=== PATIENT | male | born 1950 | race African-American/Black ===

== ENCOUNTER 2017-05-25 13:26 | Emergency (ER) | payer MEDICARE, OTHER ==
[2017-05-25 13:31] VITALS: BMI 29.9
--- NOTE | 2017-05-25 13:44 | PDOC ---
History of Present Illness - General Chief Complaint: Injury Stated Complaint: SENT BY PCP FOR HEAD INJURY Time Seen by Provider: 05/25/17 13:43 - History of Present Illness Initial Comments: 05/25/17 13:45 Mr. Choe is a 67 yo male with a significant past medical history of DM, HTN, Hyperlipidemia, CAD, and PTCA who presents to the emergency department for evaluation after continued headache following fall yesterday evening. He reports that he administered his nightly insulin and then became "shakey and wobbly" upon standing. He then fell and hit his head. Following this he developed circumferential headache and "foggy" vision which he says has remained constant since. The patient denies chest pain and shortness of breath. Denies fever, chills, nausea, vomit, diarrhea and constipation. Denies dysuria, frequency, urgency and hematuria. Allergies: Atorvastatin, clopidogrel, plavix and lipitor Past surgical history: Stent placement Social history: Denies PMD - Aleida Pawel Past History - Past Medical History Allergies/Adverse Reactions: Allergies Allergy/AdvReac Type Severity Reaction Status Date / Time atorvastatin calcium AdvReac Muscle Verified 05/25/17 13:31 [From Lipitor] Spasms clopidogrel bisulfate AdvReac Verified 05/25/17 13:31 [From Plavix] Home Medications: Ambulatory Orders Glipizide [Glipizide ER] 10 mg PO DAILY 06/16/16 Insulin Detemir [Levemir Flextouch] 18 unit SQ BID 06/16/16 Losartan/Hydrochlorothiazide [Losartan-Hctz 100-25 mg Tab] 1 each PO DAILY 06/16 Tamsulosin HCl [Flomax] 0.4 mg PO DAILY 06/16/16 Metformin HCl [Glucophage] 0 mg PO DAILY 05/25/17 Metoprolol Tartrate 0 mg PO DAILY 05/25/17 Anemia: Yes Asthma: Yes Cancer: No Cardiac Disorders: Yes ([place], stents) CVA: No COPD: No CHF: No Dementia: No Diabetes: Yes GI Disorders: Yes (GERD) Disorders: No HTN: Yes Hypercholesterolemia: Yes Liver Disease: No Suicide Attempt (Hx): No Seizures: No Thyroid Disease: No - Surgical History Abdominal Surgery: No Appendectomy: No Cardiac Surgery: Yes (2 STENTS) Cholecystectomy: No Lung Surgery: No Neurologic Surgery: No Orthopedic Surgery: No - Immunization History Td Vaccination: Yes Immunization Up to Date: Yes - Psycho/Social/Smoking Cessation Hx Anxiety: No Suicidal Ideation: No Smoking Status: No Smoking History: Never smoked Years of Tobacco Use: 0 Have you smoked in the past 12 months: No Number of Cigarettes Smoked Daily: 0 Cigars Per Day: 0 Information on smoking cessation initiated: No Hx Alcohol Use: No Drug/Substance Use Hx: No Substance Use Type: None Hx Substance Use Treatment: No Review of Systems - Review of Systems Comments:: 05/25/17 13:45 GENERAL/CONSTITUTIONAL: No fever or chills. No weakness. HEAD, EYES, EARS, NOSE AND THROAT: No change in vision. No ear pain or discharge. No sore throat. CARDIOVASCULAR: No chest pain or shortness of breath RESPIRATORY: No cough, wheezing, or hemoptysis. GASTROINTESTINAL: No nausea, vomiting, diarrhea or constipation. GENITOURINARY: No dysuria, frequency, or change in urination. MUSCULOSKELETAL: No joint or muscle swelling or pain. No neck or back pain. SKIN: No rash NEUROLOGIC: +current headache circumferentially around head. No vertigo, loss of consciousness, or change in strength/sensation. ENDOCRINE: No increased thirst. No abnormal weight change HEMATOLOGIC/LYMPHATIC: No anemia, easy bleeding, or history of blood clots. ALLERGIC/IMMUNOLOGIC: No hives or skin allergy. *Physical Exam - Vital Signs Last Vital Signs Temp Pulse Resp BP Pulse Ox 98.4 F 77 18 139/74 100 05/25/17 13:27 05/25/17 13:27 05/25/17 13:27 05/25/17 13:27 05/25/17 13:27 - Physical Exam Comments: 05/25/17 13:45 GENERAL: Awake, alert, and fully oriented, in no acute distress HEAD: No signs of trauma, normocephalic, atraumatic EYES: PERRLA, EOMI, sclera anicteric, conjunctiva clear ENT: Auricles normal inspection, hearing grossly normal, nares patent, oropharynx clear without exudates. Moist mucosa NECK: Normal ROM, supple, no lymphadenopathy, JVD, or masses LUNGS: No distress, speaks full sentences, clear to auscultation bilaterally HEART: Regular rate and rhythm, normal S1 and S2, no murmurs, rubs or gallops, peripheral pulses normal and equal bilaterally. ABDOMEN: Soft, nontender, normoactive bowel sounds. No guarding, no rebound. No masses EXTREMITIES: Normal inspection, Normal range of motion, no edema. No clubbing or cyanosis. NEUROLOGICAL: Cranial nerves II through XII grossly intact. Normal speech, normal gait, no focal sensorimotor deficits SKIN: Warm, Dry, normal turgor, no rashes or lesions noted. ED Treatment Course - LABORATORY CBC & Chemistry Diagram: 05/25/17 14:30 05/25/17 15:52 *DC/Admit/Observation/Transfer Diagnosis at time of Disposition: Fall Qualifiers: Encounter type: initial encounter Qualified Code(s): W19.XXXA - Unspecified fall, initial encounter - Discharge Dispostion Disposition: HOME - Referrals Referrals: Aleida Soni MD [Primary Care Provider] - - Patient Instructions Printed Discharge Instructions: DI for Closed Head Injury, DI for Hypoglycemia Additional Instructions: Please follow-up as discussed with your provider tomorrow.
[2017-05-25 14:54] LABS: BASOPHIL 0.7 % (0-2.0); EOSINOPHIL 0.9 % (0-4.5); MCH 30.1 pg (25.7-33.7); MCHC 33.3 g/dl (32.0-35.9); MEAN CELL VOLUME 90.4 fl (80-96); MEAN PLT VOLUME 9.4 fl (7.5-11.1); NEUTROPHILS 58.1 % (42.8-82.8); PLATELET COUNT 328 K/MM3 (134-434); RDW 13.7 % (11.9-15.9); WHITE BLOOD COUNT 7.1 K/mm3 (4.0-10.0)
--- NOTE | 2017-05-25 16:29 | PDOC ---
Attending Attestation - Resident Resident Name: Wiley Fish - ED Attending Attestation I have performed the following: I have examined & evaluated the patient, The case was reviewed & discussed with the resident, I agree w/resident's findings & plan, Exceptions are as noted - HPI HPI: 05/25/17 16:26 67 yo m with h/'o DM here /sp fall yesterday. pt state he fainted after taking his insulin, fell and hit his head. brief loc. states ate too long prior to giving insulin. has happened to him before. no cp no palpitations. no mod factors. - Physicial Exam PE: 05/25/17 16:28 awake alert lungs clear heart rrr nomrg. abd soft nt nd. ext wwp . atraumatic. no mildline spinal tenderness. - Medical Decision Making 05/25/17 16:29 67 s/p head trauma. synocpe likley related to hypoglycemia. plan labs ekg ct head. d/w dr zhang pt pcp.
[2017-05-25 16:52] LABS: ANION GAP 7 (8-16); CALCIUM 10.2 mg/dL (8.5-10.1); CO2 32 mmol/L (21-32); GLUCOSE,RANDOM 73 mg/dL (74-106)
[2017-05-25 16:56] LABS: ALK PHOS 45 U/L (45-117); BILIRUBIN,TOTAL 0.3 mg/dL (0.2-1.0); SGOT/AST 19 U/L (15-37); SGPT/ALT 32 U/L (12-78); TOT PROT 7.3 g/dl (6.4-8.2)
[2017-05-25] MEDS ORDERED: ACETAMINOPHEN 325 MG TABLET (FP) PO ONE (16:59)
[2017-05-25] MEDS ORDERED: ACETAMINOPHEN 325 MG TABLET (FP) ONE (17:07)
[2017-05-25 18:04] LABS: CPK 558 IU/L (39-308); TROPONIN I < 0.02 ng/ml (0.00-0.05)
--- NOTE | 2017-05-25 19:12 | PDOC ---
*Physical Exam - Vital Signs Last Vital Signs Temp Pulse Resp BP Pulse Ox 97.8 F 68 18 119/60 100 05/25/17 16:32 05/25/17 16:32 05/25/17 16:32 05/25/17 16:32 05/25/17 16:32 - Physical Exam Comments: 05/25/17 19:11 General Appearance: Nourished. No Apparent Distress HEENT: EOMI, MARILYN Respiratory/Chest: Lungs Clear, Normal Breath Sounds. No Crackles, Rales, Rhonchi, Wheezing Cardiovascular: Regular Rhythm, Regular Rate. No Murmur, Gallop/S3, Gallop/S4 Gastrointestinal/Abdominal: Normal Bowel Sounds, Soft. No Guarding, Rebound, Tenderness Musculoskeletal: Normal Inspection Extremity: Normal Capillary Refill Integumentary: Normal Color, Dry, Warm Neurologic: mechanical unit repairer II-XII NML intact, Fully Oriented, Alert, Normal Mood/Affect, Normal Response, Motor Strength /5 ED Treatment Course - LABORATORY CBC & Chemistry Diagram: 05/25/17 14:30 05/25/17 15:52 - ADDITIONAL ORDERS Additional order review: Laboratory Results 05/25/17 05/25/17 05/25/17 16:20 15:52 14:30 Sodium 139 Cancelled Potassium 4.6 Cancelled Chloride 100 Cancelled Carbon Dioxide 32 Cancelled Anion Gap 7 L Cancelled BUN 29 H Cancelled Creatinine 2.0 H Cancelled Creat Clearance w eGFR 33.49 Cancelled Random Glucose 73 L D Cancelled Calcium 10.2 H Cancelled Total Bilirubin 0.3 D Cancelled AST 19 D Cancelled ALT 32 D Cancelled Alkaline Phosphatase 45 Cancelled Creatine Kinase 558 H Cancelled Troponin I < 0.02 Cancelled Total Protein 7.3 Cancelled Albumin 4.0 Cancelled 05/25/17 14:30 RBC 4.02 MCV 90.4 MCHC 33.3 RDW 13.7 MPV 9.4 D Neutrophils % 58.1 Lymphocytes % 32.6 Monocytes % 7.7 Eosinophils % 0.9 Basophils % 0.7 - Medications Given in the ED: ED Medications Discontinued Medications Generic Name Dose Route Start Last Admin Trade Name Freq PRN Reason Stop Dose Admin Acetaminophen 650 mg 05/25/17 16:59 05/25/17 17:07 Tylenol - PO 05/25/17 17:00 650 mg ONCE ONE Administration Progress Note - Progress Note Progress Note: Received sign out from Dr. Mejias. Patient is a 67 year old male with a history of DM, HTN, HLD who presents following a fall from a hypoglycemic episode yesterday. Work up has been negative thus far pending CK. If CK is negative, that patient can be discharged home with follow up with his PCP Dr. Soni. Medical Decision Making - Medical Decision Making 05/25/17 19:17 CK index is 0.6. We feel comfortable discharging the patient at this time. The patient is agreeable with the plan. *DC/Admit/Observation/Transfer Diagnosis at time of Disposition: Fall Qualifiers: Encounter type: initial encounter Qualified Code(s): W19.XXXA - Unspecified fall, initial encounter - Discharge Dispostion Disposition: HOME - Referrals Referrals: Aleida Soni MD [Primary Care Provider] - - Patient Instructions Printed Discharge Instructions: DI for Hypoglycemia, DI for Closed Head Injury Additional Instructions: Please follow-up as discussed with your provider tomorrow. - Post Discharge Activity
[2017-05-25 19:25] VITALS: BP 128/73; PULSE 72; TEMP 98.4
--- NOTE | 2017-05-26 12:26 | EKG ---
Test Reason : Blood Pressure : / mmHG Vent. Rate : 067 BPM Atrial Rate : 067 BPM P-R Int : 186 ms QRS Dur : 082 ms QT Int : 388 ms P-R-T Axes : 070 069 059 degrees QTc Int : 409 ms NORMAL SINUS RHYTHM NORMAL ECG WHEN COMPARED WITH ECG OF 16-JUN-2016 13:15, NO SIGNIFICANT CHANGE WAS FOUND Confirmed by JOYCE MCCORMICK MD ([id number]) on 05/26/2017 12:26:04 PM Referred By: Confirmed By:JOYCE MCCORMICK MD
== END 2017-05-25 19:25 | disposition home or self-care (01) ==
LOC: JER 13:26
DX: S09.8XXA Other specified injuries of head, initial encounter (principal); E11.649 Type 2 diabetes mellitus with hypoglycemia without coma; Z79.4 Long term (current) use of insulin; Z79.84 Long term (current) use of oral hypoglycemic drugs; I25.2 Old myocardial infarction; I25.10 Atherosclerotic heart disease of native coronary artery without angina pectoris; I10 Essential (primary) hypertension; Z95.5 Presence of coronary angioplasty implant and graft; E78.00 Pure hypercholesterolemia, unspecified; J45.909 Unspecified asthma, uncomplicated; D64.9 Anemia, unspecified; W01.198A Fall on same level from slipping, tripping and stumbling with subsequent striking against other object, initial encounter; Y93.89 Activity, other specified; Y92.018 Other place in single-family (private) house as the place of occurrence of the external cause
CPT/HCPCS: 36415; 70450-TC; 80053; 82553; 84484; 85025; 93005; 93010; 99283-25

== ENCOUNTER 2018-01-26 12:52 | Emergency (ER) | payer MEDICARE, OTHER ==
[2018-01-26 12:58] VITALS: BMI 29.4
--- NOTE | 2018-01-26 13:25 | PDOC ---
History of Present Illness - General History Source: Patient Exam Limitations: No Limitations - History of Present Illness Initial Comments: 01/26/18 13:54 The patient is a 67 year old male, with a significant PMH of seasonal allergies , DM, HTN, Hyperlipidemia, asthma, CAD and PTCA who presents to the emergency department with bilateral eye swelling since 9 am. The patient states [place] the city [place] when he noticed the bilateral eye swelling. The patient states he ate peanuts approx. 30 minutes prior but reports he often eats peanuts and has never had an allergic reaction from peanuts before. The patient states he does have very bad seasonal allergies. The patient states that earlier he felt some generalized eye itchiness and was rubbing his eyes, especially his R eye pretty agressively. The patient states he tried using eye drops from [facility] (patient is unsure of the name of the drops) with minimal relief. He denies any skin rash, difficulty breathing, wheezing, palpitations, abdominal pain, nausea or vomiting. The patient denies chest pain, shortness of breath, headache and dizziness. Denies fever, chills, nausea, vomit, diarrhea and constipation. Denies dysuria, frequency, urgency and hematuria. Allergies: seasonal allergies, atorvastatin calcium, clopidogrel bisulfate Past surgical history: Stent placement Social history: No reported PCP: Dr. Aleida Soni <Jakob Junior - Last Filed: 01/26/18 13:54> <Jr Rubalcava - Last Filed: 01/26/18 15:01> - General Chief Complaint: Allergic Reaction Stated Complaint: ALLERGIC REASCTION Time Seen by Provider: 01/26/18 13:21 Past History <Jakob Junior - Last Filed: 01/26/18 13:54> - Past Medical History Anemia: Yes Asthma: Yes Cancer: No Cardiac Disorders: Yes ([place], stents) CVA: No COPD: No CHF: No DVT: No Dementia: No Diabetes: Yes GI Disorders: Yes (GERD) Disorders: No HTN: Yes Hypercholesterolemia: Yes Liver Disease: No Seizures: No Thyroid Disease: No - Surgical History Abdominal Surgery: No Appendectomy: No Cardiac Surgery: Yes (2 STENTS) Cholecystectomy: No Lung Surgery: No Neurologic Surgery: No Orthopedic Surgery: No - Immunization History Td Vaccination: Yes Immunization Up to Date: Yes - Suicide/Smoking/Psychosocial Hx Smoking Status: No Smoking History: Never smoked Years of Tobacco Use: 0 Have you smoked in the past 12 months: No Number of Cigarettes Smoked Daily: 0 Cigars Per Day: 0 Information on smoking cessation initiated: No Hx Alcohol Use: No Drug/Substance Use Hx: No Substance Use Type: None Hx Substance Use Treatment: No <Jr Rubalcava - Last Filed: 01/26/18 15:01> - Past Medical History Allergies/Adverse Reactions: Allergies Allergy/AdvReac Type Severity Reaction Status Date / Time atorvastatin calcium AdvReac Muscle Verified 01/26/18 12:54 [From Lipitor] Spasms clopidogrel bisulfate AdvReac Verified 01/26/18 12:54 [From Plavix] Home Medications: Ambulatory Orders Glipizide [Glipizide ER] 10 mg PO DAILY 06/16/16 Insulin Detemir [Levemir Flextouch] 18 unit SQ BID 06/16/16 Losartan/Hydrochlorothiazide [Losartan-Hctz 100-25 mg Tab] 1 each PO DAILY 06/16 Tamsulosin HCl [Flomax] 0.4 mg PO DAILY 06/16/16 Metformin HCl [Glucophage] 0 mg PO DAILY 05/25/17 Metoprolol Tartrate 0 mg PO DAILY 05/25/17 Diphenhydramine HCl [Benadryl Capsules -] 25 mg PO TID #14 capsule 01/26/18 predniSONE [Deltasone -] 40 mg PO DAILY #6 tablet 01/26/18 Review of Systems - Review of Systems Comments:: 01/26/18 13:55 CONSTITUTIONAL: No reported: Fever, Chills, Diaphoresis, Generalized Weakness, Malaise, Loss of Appetite HEENT: Reported: (+) Bilateral eye swelling. No reported: Rhinorrhea, Nasal Congestion, Throat Pain, Throat Swelling, Difficulty Swallowing, Mouth Swelling, Ear Pain, Eye Pain CARDIOVASCULAR: No reported: Chest Pain, Syncope, Palpitations, Irregular Heart Rate, Lightheadedness, Peripheral Edema RESPIRATORY: No reported: Cough, Shortness of Breath, SOB with Exertion, Orthopnea, Wheezing , Stridor, Hemoptysis GASTROINTESTINAL: No reported: Abdominal pain, Abdominal Distension, Nausea, Vomiting, Diarrhea, Constipation, Melena, Hematochezia GENITOURINARY: No reported: Dysuria, Frequency, Urgency, Hesitancy, Flank Pain, Genital Pain MUSCULOSKELETAL: No reported: Myalgia, Arthralgia, Joint Swelling, Back pain, Neck Pain SKIN: No reported: Rash, Itching, Pallor HEMEATOLOGIC/IMMUNOLOGIC: No reported: Easy Bleeding, Easy Bruising, Lymphadenopathy, Frequent infections ENDOCRINE: No reported: Unexplained Weight Gain, Unexplained Weight Loss, Heat Intolerance , Cold Intolerance NEUROLOGIC: No reported: Headache, Focal Weakness, Paresthesias, Vertigo, Lightheadedness, Unsteady Gait, Seizure, Mental Status Changes, Incontinence PSYCHIATRIC: No reported: Anxiety, Depression <Jakob Junior - Last Filed: 01/26/18 13:54> *Physical Exam - Vital Signs Last Vital Signs Temp Pulse Resp BP Pulse Ox 99.0 F 77 16 130/88 100 01/26/18 12:54 01/26/18 12:54 01/26/18 12:54 01/26/18 12:54 01/26/18 12:54 - Physical Exam Comments: 01/26/18 13:55 GENERAL: The patient is awake, alert, and fully oriented, Nontoxic - in no acute distress. HEAD: Normocephalic, atraumatic. EYES: b/l periorbital edema (R>L), +conjunctival edema/chemosis on R eye, EOMI ENT: Normal voice, Moist mucous membranes, posterior pharynx clear and patent, symmetric LUNGS: Breath sounds equal, clear to auscultation bilaterally. No wheezes, no rhonchi, no rales. HEART: Regular rate and rhythm, normal S1 and S2 without murmur, rub or gallop. ABDOMEN: Soft, nontender,. No CVA tenderness NEUROLOGICAL: No facial assymetry, Normal speech, SKIN: Warm, Dry, normal turgor, <Jakob Junior - Last Filed: 01/26/18 13:54> - Vital Signs Last Vital Signs Temp Pulse Resp BP Pulse Ox 99.0 F 77 16 130/88 100 01/26/18 12:54 01/26/18 12:54 01/26/18 12:54 01/26/18 12:54 01/26/18 12:54 <Jr Rubalcava - Last Filed: 01/26/18 15:01> Medical Decision Making - Medical Decision Making 01/26/18 13:23 67y M hx of asthma, dm, allergies, cad s/p stents presents with eye swelling that started paprox 11am, pt notes it started approx 30 minutes after eating peanuts, but notes never had any problems with peanuts. Was outside earlier in the day, ddx - allergic reaction/chemosis no signs of airway compromise or anaphylaxis will dc with pmd fu and supportive care with prednisone/benadryl return precautions were discusse I discussed the physical exam findings, ancillary test results and final diagnoses with the patient. I answered all of the patient's questions. The patient was satisfied with the care received and felt comfortable with the discharge plan and treatment plan. The patient will call their primary care physician within 24 hours to arrange follow-up and will return to the Emergency Department with any new, persistent or worsening symptoms. <Jr Rubalcava - Last Filed: 01/26/18 15:01> *DC/Admit/Observation/Transfer - Attestations Scribe Attestion: 01/26/18 13:55 Documentation prepared by Jakob Junior, acting as medical records specialist for Jr Rubalcava MD. <Jakob Junior - Last Filed: 01/26/18 13:54> - Discharge Dispostion Decision to Admit order: No <Jr Rubalcava - Last Filed: 01/26/18 15:01> Diagnosis at time of Disposition: Chemosis of right conjunctiva, Periorbital edema of right eye Allergic reaction Qualifiers: Encounter type: initial encounter Qualified Code(s): T78.40XA - Allergy, unspecified, initial encounter - Discharge Dispostion Disposition: HOME Condition at time of disposition: Improved - Referrals Referrals: Aleida Soni MD [Primary Care Provider] - - Patient Instructions Printed Discharge Instructions: DI for Eye Allergic Reaction Additional Instructions: Return to the emergency department immediately with ANY new, persistent or worsening symptoms including any blurry vision, swelling of your tongue, your throat, if he had any problems swallowing, changes in your voice, shortness of breath, or any other concerns. I suspect that you're symptoms were due to an ALLERGIC reaction likely due to pollen, however do not eat peanuts and please see your ALLERGY doctor. Take the medication as prescribed as needed. You MUST call and follow up with your doctor in 2 or 3 days for further evaluation of your symptoms. Results were discussed with you. Please make sure your doctor reviews the results of your emergency evaluation. Print Language: MAORI - Post Discharge Activity
[2018-01-26] MEDS ORDERED: predniSONE 20 MG TABLET (UD) PO ONE (13:38)
[2018-01-26] MEDS ORDERED: diphenhydrAMINE HCL 25 MG CAPSULE (FP) PO ONE ×2 (13:38→14:08)
[2018-01-26] MEDS ORDERED: predniSONE 20 MG TABLET (UD) ONE (14:08)
[2018-01-26 15:33] VITALS: BP 145/76; PULSE 69; TEMP 98.7
== END 2018-01-26 15:23 | disposition home or self-care (01) ==
LOC: JER 12:52
DX: T78.40XA Allergy, unspecified, initial encounter (principal); H11.421 Conjunctival edema, right eye
CPT/HCPCS: 99282-25

== ENCOUNTER 2018-10-20 00:14 | Inpatient (IN) | payer MEDICARE, OTHER ==
--- NOTE | 2018-10-20 00:44 | PDOC ---
Attending Attestation - Resident Resident Name: Nav Daniels - ED Attending Attestation I have performed the following: I have examined & evaluated the patient, The case was reviewed & discussed with the resident, I agree w/resident's findings & plan, Exceptions are as noted - HPI HPI: 10/20/18 07:21 68M pmh DM, HTN, HLD, CAD here with chest pain radiating to left shoulder a/w sob, diaphoresis since 11pm. Pt took 162mg asa at home, given an additional 162mg asa by EMS. Px improved with SL NTG. - Physicial Exam PE: 10/20/18 07:22 Agree with exam as documented by resident - Medical Decision Making 10/20/18 07:23 Typical CP in high risk patient f/u labs, ekg, cxr ekg with lateral STD, 1st trop 0.42 start AC, serial trop, ekg admit
[2018-10-20 01:07] LABS: EOS % 2.2 % (0-4.5); HEMATOCRIT 35.2 % (35.4-49); HEMOGLOBIN 12.7 GM/dL (11.7-16.9); LYMPH % 29.3 % (8-40); MCH 32.5 pg (25.7-33.7); MEAN CELL VOLUME 90.2 fl (80-96); MEAN PLT VOLUME 8.4 fl (7.5-11.1); MONO % 8.6 % (3.8-10.2); NEUT % 58.9 % (42.8-82.8); PLATELET COUNT 254 K/MM3 (134-434); RBC 3.91 M/mm3 (4.00-5.60); RDW 12.9 % (11.9-15.9); WHITE BLOOD COUNT 6.5 K/mm3 (4.0-10.0)
[2018-10-20 01:10] VITALS: BMI 30.1
[2018-10-20 01:49] LABS: ALBUMIN 3.2 g/dl (3.4-5.0); ALK PHOS 52 U/L (45-117); ANION GAP 8 MMOL/L (8-16); BILIRUBIN,TOTAL 0.3 mg/dL (0.2-1); BLOOD UREA NITROGEN 30 mg/dL (7-18); CALCIUM 8.7 mg/dL (8.5-10.1); CHLORIDE 98 mmol/L (98-107); CO2 28 mmol/L (21-32); CREATININE 2.4 mg/dL (0.55-1.3); GLUCOSE,RANDOM 223 mg/dL (74-106); MAGNESIUM 1.6 mg/dL (1.8-2.4); POTASSIUM 3.9 mmol/L (3.5-5.1); SGOT/AST 24 U/L (15-37); SGPT/ALT 25 U/L (13-61); SODIUM 134 mmol/L (136-145); TOT PROT 6.8 g/dl (6.4-8.2)
[2018-10-20] MEDS ORDERED: HEPARIN NA (PORCINE) 5,000 UNITS/ML 1ML VIAL IVPUSH PRN ×2 (01:57)
--- NOTE | 2018-10-20 01:57 | PDOC ---
History of Present Illness - General Chief Complaint: Chest Pain Stated Complaint: CHEST PAIN Time Seen by Provider: 10/20/18 00:24 History Source: Patient Exam Limitations: No Limitations - History of Present Illness Initial Comments: 10/20/18 01:56 Patient is a 68M with history of CAD, HTN, DM, HLD here today complaining of chest pain. He states that he woke up at 11pm today with shortness of breath, diaphoresis, and chest pain radiating to his left shoulder. Patient states that he took 162 of aspirin. EMS gave him additional 162 of aspirin. The pain improved with nitro. Patient denies fevers, chills, cough, shortness of breath, nausea, vomiting. Denies leg swelling, blood clots, recent travel. Past History - Past Medical History Allergies/Adverse Reactions: Allergies Allergy/AdvReac Type Severity Reaction Status Date / Time atorvastatin calcium AdvReac Muscle Verified 10/20/18 00:37 [From Lipitor] Spasms clopidogrel bisulfate AdvReac Verified 10/20/18 00:37 [From Plavix] Home Medications: Ambulatory Orders Glipizide [Glipizide ER] 10 mg PO DAILY 06/16/16 Losartan/Hydrochlorothiazide [Losartan-Hctz 100-25 mg Tab] 1 each PO DAILY 06/16 Metoprolol Tartrate 50 mg PO DAILY 05/25/17 Insulin Aspart [Novolog] 8 unit SQ TID 10/20/18 Insulin Glargine,Hum.rec.anlog [Lantus] 28 unit SQ BID 10/20/18 Anemia: Yes Asthma: Yes Cancer: No Cardiac Disorders: Yes ([place], stents) CVA: No COPD: No CHF: No DVT: No Dementia: No Diabetes: Yes GI Disorders: Yes (GERD) Disorders: No HTN: Yes Hypercholesterolemia: Yes Liver Disease: No Seizures: No Thyroid Disease: No - Surgical History Abdominal Surgery: No Appendectomy: No Cardiac Surgery: Yes (2 STENTS) Cholecystectomy: No Lung Surgery: No Neurologic Surgery: No Orthopedic Surgery: No - Immunization History Td Vaccination: Yes Immunization Up to Date: Yes - Suicide/Smoking/Psychosocial Hx Smoking Status: No Smoking History: Never smoked Years of Tobacco Use: 0 Have you smoked in the past 12 months: No Number of Cigarettes Smoked Daily: 0 Cigars Per Day: 0 Information on smoking cessation initiated: No Hx Alcohol Use: No Drug/Substance Use Hx: No Substance Use Type: None Hx Substance Use Treatment: No Review of Systems - Review of Systems Able to Perform ROS?: Yes Comments:: 10/20/18 02:18 GENERAL/CONSTITUTIONAL: No fever or chills. No weakness. HEAD, EYES, EARS, NOSE AND THROAT: No change in vision. No sore throat. CARDIOVASCULAR: +chest pain +shortness of breath RESPIRATORY: No cough, wheezing, or hemoptysis. GASTROINTESTINAL: No nausea, vomiting, diarrhea or constipation. GENITOURINARY: No dysuria, frequency, or change in urination. MUSCULOSKELETAL: No joint or muscle swelling or pain. No neck or back pain. SKIN: No rash NEUROLOGIC: No headache, vertigo, loss of consciousness, or change in strength/ sensation. ENDOCRINE: No increased thirst. No abnormal weight change HEMATOLOGIC/LYMPHATIC: No anemia, easy bleeding, or history of blood clots. ALLERGIC/IMMUNOLOGIC: No hives or skin allergy. *Physical Exam - Vital Signs Last Vital Signs Temp Pulse Resp BP Pulse Ox 98.5 F 85 18 126/73 99 10/20/18 00:15 10/20/18 00:15 10/20/18 00:15 10/20/18 00:15 10/20/18 00:15 - Physical Exam Comments: 10/20/18 02:20 GENERAL: Awake, alert, and fully oriented, in no acute distress HEAD: No signs of trauma, normocephalic, atraumatic EYES: PERRLA, EOMI, sclera anicteric, conjunctiva clear ENT: Auricles normal inspection, hearing grossly normal, nares patent, oropharynx clear without exudates. Moist mucosa NECK: Normal ROM, supple, no lymphadenopathy, JVD, or masses LUNGS: No distress, speaks full sentences, clear to auscultation bilaterally HEART: Regular rate and rhythm, normal S1 and S2, no murmurs, rubs or gallops, peripheral pulses normal and equal bilaterally. ABDOMEN: Soft, nontender, normoactive bowel sounds. No guarding, no rebound. No masses EXTREMITIES: Normal inspection, Normal range of motion, no edema. No clubbing or cyanosis. NEUROLOGICAL: Cranial nerves II through XII grossly intact. Normal speech, no focal sensorimotor deficits SKIN: Warm, Dry, normal turgor, no rashes or lesions noted. Moderate Sedation - Procedure Monitoring Vital Signs: Procedure Monitoring Vital Signs Temperature 98.5 F 10/20/18 00:15 Pulse Rate 85 10/20/18 00:15 Respiratory Rate 18 10/20/18 00:15 Blood Pressure 126/73 10/20/18 00:15 O2 Sat by Pulse Oximetry (%) 99 10/20/18 00:15 ED Treatment Course - LABORATORY CBC & Chemistry Diagram: 10/20/18 00:58 10/20/18 00:58 - ADDITIONAL ORDERS Additional order review: Laboratory Results 10/20/18 00:58 Sodium 134 L Potassium 3.9 Chloride 98 Carbon Dioxide 28 Anion Gap 8 BUN 30 H Creatinine 2.4 H Creat Clearance w eGFR 27.06 Random Glucose 223 H Calcium 8.7 Magnesium 1.6 L Total Bilirubin 0.3 AST 24 ALT 25 Alkaline Phosphatase 52 Creatine Kinase 226 Troponin I 0.42 H Total Protein 6.8 Albumin 3.2 L 10/20/18 00:58 RBC 3.91 L MCV 90.2 MCHC 36.0 H RDW 12.9 MPV 8.4 Neutrophils % 58.9 Lymphocytes % 29.3 Monocytes % 8.6 Eosinophils % 2.2 D Basophils % 1.0 - RADIOLOGY Radiology Studies Ordered: Category Date Time Status CHEST X-RAY PORTABLE* [RAD] Stat Radiology 10/20/18 00:39 Taken Medical Decision Making - Medical Decision Making 10/20/18 02:20 Patient is 68M here today with chest pain. Vitals normal and stable. EKG shows normal sinus rhythm with rate of 83. ST depressions in V4-V6. Normal axis. Normal intervals. No st elevations. Got aspirin before arrival. Trop positive to 0.41. Other labs wnl. Page out to cards. Given morphine for pain, pain has improved but still present. Heparin bolus and drip started. PCP: Nae, Cards: Carly 10/20/18 04:55 D/W Dr Mitchell, accepted to tele. *DC/Admit/Observation/Transfer Diagnosis at time of Disposition: NSTEMI (non-ST elevated myocardial infarction) - Discharge Dispostion Condition at time of disposition: Stable Decision to Admit order: Yes - Referrals - Patient Instructions - Post Discharge Activity
[2018-10-20] MEDS ORDERED: HEPARIN NA (PORCINE) 5,000 UNITS/ML 1ML VIAL IVPUSH ONE (01:58)
[2018-10-20] MEDS ORDERED: HEPARIN - 25,000 UNIT in SODIUM CHLORIDE 495 ML IV SCH (02:00)
[2018-10-20] MEDS ORDERED: HEPARIN INFUSION - 25,000 UNITS/500 ML INFUS.BAG IVPB ONE (02:03)
[2018-10-20] MEDS ORDERED: HEPARIN NA (PORCINE) 5,000 UNITS/ML 1ML VIAL ONE (02:03)
[2018-10-20] MEDS ORDERED: morphine CARPU-JECT 4 MG/1 ML DISP.SYRIN IVPUSH ONE (02:17)
[2018-10-20 02:25] LABS: INR 0.86 (0.83-1.09); PROTHROMBIN TIME (PATIENT) 10.1 SEC (9.7-13.0)
[2018-10-20] MEDS ORDERED: morphine SULFATE 4 MG/ML VIAL ONE (02:29)
--- NOTE | 2018-10-20 04:22 | HP ---
CHIEF COMPLAINT: chest pain x 11pm PCP: Dr. Soni HISTORY OF PRESENT ILLNESS: 68 y/o M with PMH CAD s/p 2 stents (6 yrs ago; [facility], Dr. Ochoa), HTN, DM2 , HLD, asthma, who presents to the ED c/o chest pain that started at 11pm this evening. As per pt, at 11pm, he was fast asleep when he started to develop diaphoresis. At the same time, he developed mid-sternal chest pain that was 10/ 10 and sharp. Had thought that it was asthma, so took his inhaler without relief. When his chest pain continued to worsen over the next 45 minutes, and began to radiate into his LUE, he told himself "I am having a heart attack." Thus pt took 2 baby asa (162mg total) and called himself an ambulance to come to the ER. States that he feels better than when he arrived. Only endorses dry cough that he has had over the past 3-4 weeks. Without current chest pain or pressure, M[place], fever, chills, SOB, or changes in urinary or bowel function. He follows with Dr. Carroll. States that he had a stress test done about a year ago, however does not know the result. ECHO from 2013 shows EF 44%, with nl LV systolic fnc and trace MR, TR. No significant family hx of [place], HTN, but his mother does have DM. 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 moved here from [place] 40-50 yrs ago Smoking: denies Alcohol: denies Drugs: denies Family History: mother- DM Allergies atorvastatin calcium [From Lipitor] Adverse Reaction (Verified 10/20/18 00:37) Muscle Spasms clopidogrel bisulfate [From Plavix] Adverse Reaction (Verified 10/20/18 00:37) HOME MEDICATIONS: Home Medications Medication Instructions Recorded Glipizide [Glipizide ER] 10 mg PO DAILY 06/16/16 Losartan/Hydrochlorothiazide 1 each PO DAILY 06/16/16 [Losartan-Hctz 100-25 mg Tab] Metoprolol Tartrate 50 mg PO DAILY 05/25/17 Insulin Aspart [Novolog] 8 unit SQ TID 10/20/18 Insulin Glargine,Hum.rec.anlog 28 unit SQ BID 10/20/18 [Lantus] meds need to be confirmed with patient and pharmacy REVIEW OF SYSTEMS CONSTITUTIONAL: +diaphoresis Absent: fever, chills, diaphoresis, generalized weakness, malaise, loss of appetite, weight change HEENT: Absent: rhinorrhea, nasal congestion, throat pain, throat swelling, difficulty swallowing, mouth swelling, ear pain, eye pain, visual changes CARDIOVASCULAR: +chest pain Absent: chest pain, syncope, palpitations, irregular heart rate, lightheadedness , peripheral edema RESPIRATORY: Absent: cough, shortness of breath, dyspnea with exertion, orthopnea, wheezing, stridor, hemoptysis GASTROINTESTINAL: Absent: abdominal pain, abdominal distension, nausea, vomiting, diarrhea, constipation, melena, hematochezia GENITOURINARY: Absent: dysuria, frequency, urgency, hesitancy, hematuria, flank pain, genital pain MUSCULOSKELETAL: Absent: myalgia, arthralgia, joint swelling, back pain, neck pain SKIN: Absent: rash, itching, pallor HEMATOLOGIC/IMMUNOLOGIC: Absent: easy bleeding, easy bruising, lymphadenopathy, frequent infections ENDOCRINE: Absent: unexplained weight gain, unexplained weight loss, heat intolerance, cold intolerance NEUROLOGIC: Absent: headache, focal weakness or paresthesias, dizziness, unsteady gait, seizure, mental status changes, bladder or bowel incontinence PSYCHIATRIC: Absent: anxiety, depression, suicidal or homicidal ideation, hallucinations. PHYSICAL EXAMINATION Vital Signs - 24 hr 10/20/18 00:15 Temperature 98.5 F Pulse Rate 85 Respiratory 18 Rate Blood Pressure 126/73 O2 Sat by Pulse 99 Oximetry (%) GENERAL: Very pleasant. Awake, alert, and fully oriented, in no acute distress. Resting in bed on 2L NC HEAD: Normal with no signs of trauma. EYES: Pupils equal, round and reactive to light, extraocular movements intact, sclera anicteric, conjunctiva clear. EARS, NOSE, THROAT: Ears normal, nares patent, oropharynx clear without exudates. Moist mucous membranes. NECK: Normal range of motion, supple LUNGS: Breath sounds equal, clear to auscultation bilaterally. No wheezes, and no crackles. No accessory muscle use. HEART: Regular rate and rhythm, normal S1 and S2 without murmur, rub or gallop. ABDOMEN: Soft, obese, nontender, mildly distended, normoactive bowel sounds LOWER EXTREMITIES: 2+ pt pulses, warm, well-perfused. No calf tenderness. No peripheral edema. NEUROLOGICAL: Cranial nerves II-XII intact. Normal speech. Normal gait. PSYCHIATRIC: Cooperative. Good eye contact. SKIN: Warm, dry, normal turgor Laboratory Results - last 24 hr 10/20/18 10/20/18 10/20/18 00:58 00:58 00:58 WBC 6.5 RBC 3.91 L Hgb 12.7 Hct 35.2 L MCV 90.2 MCH 32.5 MCHC 36.0 H RDW 12.9 Plt Count 254 MPV 8.4 Absolute Neuts (auto) 3.8 Neutrophils % 58.9 Lymphocytes % 29.3 Monocytes % 8.6 Eosinophils % 2.2 D Basophils % 1.0 Nucleated RBC % 0 PT with INR 10.10 INR 0.86 Sodium 134 L Potassium 3.9 Chloride 98 Carbon Dioxide 28 Anion Gap 8 BUN 30 H Creatinine 2.4 H Creat Clearance w eGFR 27.06 Random Glucose 223 H Calcium 8.7 Magnesium 1.6 L Total Bilirubin 0.3 AST 24 ALT 25 Alkaline Phosphatase 52 Creatine Kinase 226 Creatine Kinase Index 2.5 CK-MB (CK-2) 5.8 H Troponin I 0.42 H Total Protein 6.8 Albumin 3.2 L EKG: NSR, rate 83, Qtc 430ms. ST depressions lateral leads v4-v6 - new from previous. CXR: without acute pathology. official report pending ASSESSMENT/PLAN: 68 y/o M with PMH CAD s/p 2 stents (6 yrs ago; [facility], Dr. Ochoa), HTN, DM2 , HLD, asthma, who presents to the ED c/o chest pain that started at 11pm this evening. #Chest pain likely 2/2 NSTEMI -pain resolving. with new lateral ST depressions in lateral leads from previous , past hx stents -ERIC score: 4 points. 7.3% 30-day mortality risk -s/p asa loading, will cont w/ asa 81mg qd, BB met tartate 50mg qd, hep gtt. -unable to give statin and plavix, as pt with adverse rxn. -f/u ECHO, trend trops. first 0.41 -keep K>4, Mg>2 -Cardio consult: Dr. Dumont #HTN- controlled -c/w met tartate #CKD stage 3 -f/u nephro consult: Dr. Pérez #DM2 -ISS, BGM ACHS -f/u A1c #HLD -f/u lipid profile -need to d/w cardio if can start on statin. adverse effect to lipitor #asthma -currently not in exacerbation -c/w ventolin PRN #F/E/N IVF not required at this time continue to follow lytes, especially K, Mg NPO in case of procedure #PPX on hep gtt #dispo tele inpatient Visit type - Emergency Visit Emergency Visit: Yes ED Registration Date: 10/20/18 Care time: The patient presented to the Emergency Department on the above date and was hospitalized for further evaluation of their emergent condition. - New Patient This patient is new to me today: Yes Date on this admission: 10/20/18 - Critical Care Critical Care patient: No
--- NOTE | 2018-10-20 04:23 | PN ---
Teaching Attending Note Name of Resident: Marie Mitchell ATTENDING PHYSICIAN STATEMENT I saw and evaluated the patient. I reviewed the resident's note and discussed the case with the resident. I agree with the resident's findings and plan as documented. SUBJECTIVE: Patient is a 68 year old man with PMH of CAD (2 stents), acute AL, HTN, DM, HLD here today complaining of chest pain. He states that he woke up at 11pm today with shortness of breath, diaphoresis, and chest pain radiating to his left shoulder. Patient states that he took 162 of aspirin. EMS gave him additional 162 of aspirin. The pain improved with nitro. Patient denies fevers, chills, cough, shortness of breath, nausea, vomiting. Denies leg swelling, blood clots, recent travel. 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 OBJECTIVE: Alert Vital Signs Period Temp Pulse Resp BP Sys/Cisneros Pulse Ox Last 24 Hr 98.5 F 85 18 126/73 99 HEENT: No Jaundice, eye redness or discharge, PERRLA, EOMI. Normocephalic, atraumatic. External ears are normal and hearing is grossly intact. No nasal discharge. Neck: Supple, nontender. No palpable adenopathy or thyromegaly. No JVD Chest: Good effort. Clear to auscultation and percussion. Heart: Regular. No S3, rub or murmur Abdomen: Not distended, soft, nontender and no HSM. No rebound or guarding. Normoactive bowel sounds. Ext: Peripheral pulses intact. No leg edema. Skin: Warm and dry. No petechiae, rash or ecchymosis. Neuro: Alert. Oriented x3. CN 2-12 grossly intact. Sensation grossly intact in all four extremities and DTR are symmetric. Current Medications Generic Name Dose Route Start Last Admin Trade Name Freq PRN Reason Stop Dose Admin Heparin Sodium (Porcine) 1,000 unit 10/20/18 01:57 Heparin - IVPUSH PRN PRN Heparin Heparin Sodium (Porcine) 5,000 unit 10/20/18 01:57 10/20/18 02:10 Heparin - IVPUSH 5,000 unit PRN PRN Administration Heparin Heparin Sodium (Porcine) 25, 500 mls @ 20 mls/hr 10/20/18 02:00 10/20/18 02: 10 000 unit/ Sodium Chloride IV 1,000 unit/hr TITR WILLI 20 mls/hr Administration Protocol 1,000 UNIT/HR Home Medications Medication Instructions Recorded Glipizide [Glipizide ER] 10 mg PO DAILY 06/16/16 Losartan/Hydrochlorothiazide 1 each PO DAILY 06/16/16 [Losartan-Hctz 100-25 mg Tab] Metoprolol Tartrate 50 mg PO DAILY 05/25/17 Insulin Aspart [Novolog] 8 unit SQ TID 10/20/18 Insulin Glargine,Hum.rec.anlog 28 unit SQ BID 10/20/18 [Lantus] Abnormal Lab Results 10/20/18 10/20/18 00:58 00:58 RBC 3.91 L Hct 35.2 L MCHC 36.0 H Sodium 134 L BUN 30 H Creatinine 2.4 H Random Glucose 223 H Magnesium 1.6 L CK-MB (CK-2) 5.8 H Troponin I 0.42 H Albumin 3.2 L ASSESSMENT AND PLAN: 1. NSTEMI - Troponin is elevated and EKG shows ST depression in V4-6. Cardiology consulted. On IV heparin drip. Took aspirin at home and getting Metoprolol. Has adverse reaction to Statin and plavix - discuss options with cardiology. Get ECHO, fasting lipids. Give IV MgSO4 2 gm to address low Mg+. 2. Hypoalbuminemia - Possibly due to combined effects of malnutrition and inflammation associated with comorbid chronic conditions. Will ensure adequate dietary protein intake and also consult farm product purchaser. Rule out proteinuria. 3. DM - For now, we will hold the home diabetes drugs and implement sliding scale insulin regimen. Provide comprehensive diabetes care with patient teaching and counseling about the importance of euglycemia, eye care and foot care. 4. CKD stage 3 - Likely diabetic nephropathy - but unclear if he has had a proper nephrologic work up. Will consult nephrology and avoid nephrotoxic agents such as NSAIDS, aminoglycosides, contrast dyes and certain Alternative medicine products. 4. Anemia - Likely partly due to CKD. Do basic anemia work up including serial stool guaiacs, reticulocyte count and iron studies. 5. Obesity - Will provide patient all the necessary assistance, counseling and positive reinforcement to facilitate weight loss. Consult farm product purchaser. 6. DVT prophylaxis - On IV Heparin drip. 7. Advance directives - Full code
[2018-10-20] MEDS ORDERED: MAGNESIUM 2GM/50ML STERILE WATER IVPB IVPB ONE (04:29)
[2018-10-20] MEDS ORDERED: ALBUTEROL SO4 0.083% IH SOL 2.5 MG/3 ML VIAL.NEB. NEB PRN (04:46)
[2018-10-20] MEDS ORDERED: MAGNESIUM SULF 50% (8.12 MEQ/2 ML-1 GM VIAL) ONE (04:51)
[2018-10-20 06:52] LABS: CHOLESTEROL 199 mg/dL (50-200); HDL CHOLESTEROL 32 mg/dL (40-60); TRIGLYCERIDES 175 mg/dL (0-150)
[2018-10-20] MEDS: INSULIN SLIDING SCALE (NOVOLOG) 1 VIAL SQ SCH ×2 (07:04→11:42)
[2018-10-20] MEDS ORDERED: INSULIN (NOVOLOG) ASPART 100 UNITS/ML 10ML VIAL ONE (07:08)
[2018-10-20 07:28] LABS: ANION GAP 11 MMOL/L (8-16); BLOOD UREA NITROGEN 28 mg/dL (7-18); CALCIUM 9.1 mg/dL (8.5-10.1); CHLORIDE 98 mmol/L (98-107); CO2 26 mmol/L (21-32); CREATININE 2.4 mg/dL (0.55-1.3); GLUCOSE,RANDOM 215 mg/dL (74-106); SODIUM 136 mmol/L (136-145)
[2018-10-20 07:47] VITALS: TEMP 98
--- NOTE | 2018-10-20 08:29 | CON.CARD ---
Consult Consult Specialty:: Cardiology Referred by:: Dr. Quiroz Reason for Consultation:: NSTEMI - History of Present Illness Chief Complaint: chest pain History of Present Illness: 68M CAD s/p PCI, DM, CKD, HTN presents to ER with episode of SSCP and diaphoresis last night lasting about 30 minutes. Called 911. Chest pain completely relieved with 1 SLNTG In ER, dynamic ST changes with lateral ST depressions on initial ECG, resolved upon repeat several hours later. Denies SOB, palps, syncope. Denies edema Has been having SSCP walking outdoors for last week. - History Source History Provided By: Patient - Past Medical History Cardio/Vascular: Yes: CAD, HTN, Hyperlipdemia, Other (Severe Plavix allergy- TTP picture was on TICLID) Pulmonary: Yes: Other (Sarcoidosis) Gastrointestinal: No: Ascites, Cancer, Constipation, Crohn's Disease, Diverticulitis, Diverticulosis, Esophageal Varices, Gastritis, GERD, GI Bleed, Hemorrhoids, Hiatal Hernia, Inflamatory Bowel Disease, Irritable Bowel Disease, Pancreatitis, Peptic Ulcer Disease, Ulcerative Colitis, Other Hepatobiliary: No: Cirrhosis, Cholelithiasis, Cholecystitis, Choledocholithiasis , Hepatitis A, Hepatitis B, Hepatitis C, Other Renal/: No: Renal Failure, Renal Inusuff, BPH, Cancer, Hematuria, Hemodialysis , Neurogenic Bladder, Renal Calculi, UTI, Other Infectious Disease: No: AIDS, C-Diff, Herpes Zoster, HIV, MRSA, STD's, Tuberculosis, VREF, Other Psych: No: Addictions, Anxiety, Bipolar, Depression, Panic, Psychosis, Schizophrenia, Other Musculoskeletal: No: Bursitis, Chronic low back pain, Hemiparesis, Hemiplegia, Osteoarthritis, Paraplegia, Other Rheumatology: No: Fibromyalgia, Gout, Lupus, Rheumatoid Arthritis, Sarcoidosis, Vasculitis, Other ENT: No: Allergic Rhinitis, Sinusitis, Other Endocrine: No: Michael's Disease, [place]'s Disease, Diabetes Insipidus, Diabetes Mellitus, Hyperparathyroidism, Hyperthyroidism, Hypothyroidism, Osteopenia, SIADH, Other Dermatology: No: Basal Cell, Cellulitis, Eczema, Melanoma, Psoriasis, Squamous Cell, Other - Past Surgical History Additional Surgical History: Lung biopsy? - Alcohol/Substance Use Hx Alcohol Use: No - Smoking History Smoking history: Never smoked Have you smoked in the past 12 months: No Aproximately how many cigarettes per day: 0 - Social History ADL: Independent History of Recent Travel: No Home Medications - Allergies Allergies/Adverse Reactions: Allergies Allergy/AdvReac Type Severity Reaction Status Date / Time clopidogrel bisulfate Allergy Severe Verified 10/20/18 07:37 [From Plavix] atorvastatin calcium AdvReac Muscle Verified 10/20/18 00:37 [From Lipitor] Spasms - Home Medications Home Medications: Ambulatory Orders Glipizide [Glipizide ER] 10 mg PO DAILY 06/16/16 Losartan/Hydrochlorothiazide [Losartan-Hctz 100-25 mg Tab] 1 each PO DAILY 06/16 Metoprolol Tartrate 50 mg PO DAILY 05/25/17 Insulin Aspart [Novolog] 8 unit SQ TID 10/20/18 Insulin Glargine,Hum.rec.anlog [Lantus] 28 unit SQ BID 10/20/18 Family Disease History - Family Disease History Family History: Unremarkable (not pertinent to this presentation) Review of Systems Findings/Remarks: Patient is a 68M with history of CAD, HTN, DM, HLD here today complaining of chest pain. He states that he woke up at 11pm today with shortness of breath, diaphoresis, and chest pain radiating to his left shoulder. Patient states that he took 162 of aspirin. EMS gave him additional 162 of aspirin. The pain improved with nitro. Patient denies fevers, chills, cough, shortness of breath, nausea, vomiting. Denies leg swelling, blood clots, recent travel. - Review of Systems Constitutional: reports: No Symptoms Eyes: reports: No Symptoms HENT: reports: No Symptoms Neck: reports: No Symptoms Cardiovascular: reports: Chest Pain, Shortness of Breath Respiratory: reports: SOB on Exertion Gastrointestinal: denies: No Symptoms, Abdominal Pain, Bloating, Constipation, Diarrhea, Dysphagia, Indigestion, Melena, Nausea, Rectal Bleeding, Vomiting, Vomiting Blood, Other Genitourinary: denies: No Symptoms, Burning, Discharge, Dysuria, Flank Pain, Frequency, Hematuria, Incontinence, Lesions, Menses, Pain, Testicular Mass, Testicular Pain, Testicular Swelling, Urgency, Vaginal Bleeding, Other Breasts: denies: No Symptoms Reported, See HPI, Breast Implants, Discharge from Nipple, Lumps, Pain, Skin Changes, Other Musculoskeletal: denies: No Symptoms, Back Pain, Crepitus, Decreased ROM, Extremity Pain, Joint Pain, Joint Swelling, Muscle Pain, Muscle Cramps, Muscle Weakness, Other Integumentary: denies: No Symptoms, Blister, Bruising, Change in Color, Eczema, Erythema, Incision, Lesions, Lump, Pallor, Pruritis, Rash, Wound, Other Neurological: denies: No Symptoms, Change in LOC, Change in Speech, Confusion, Dizziness, Headache, Incoordination, Numbness, Parasthesia, Pre-Existing Deficit , Seizure, Syncope, Tremors, Unsteady Gait, Weakness, Other Endocrine: denies: No Symptoms, Excessive Sweating, Flushing, Increased Hunger, Increased Thirst, Intolerance to Cold, Intolerance to Heat, Unexplained Weight Gain, Unexplained Weight Loss, Other Hematology/Lymphatic: denies: No Symptoms, Easily Bruised, Excessive Bleeding, Swollen Glands, Other Psychiatric: denies: No Symptoms, Altered Sleep Pattern, Anxiety, Depression, Hallucinations, Panic, Paranoia, Suicidal, Other - Risk Factors Known Risk Factors: Yes: Diabetes Mellitus, Hypertension, Other (Known CAD) Vital Signs: Vital Signs Temperature 98.0 F 10/20/18 07:46 Pulse Rate 85 10/20/18 07:46 Respiratory Rate 18 10/20/18 07:46 Blood Pressure 120/65 10/20/18 07:46 O2 Sat by Pulse Oximetry (%) 99 10/20/18 07:46 Constitutional: Yes: No Distress, Calm Eyes: Yes: Conjunctiva Clear, EOM Intact HENT: Yes: Atraumatic, Normocephalic Neck: Yes: Supple, Trachea Midline Respiratory: Yes: CTA Bilaterally (no rales or wheezing) Gastrointestinal: Yes: Soft (non-tender) Cardiovascular: Yes: Regular Rate and Rhythm JVD: No Carotid Bruit: No PMI: Non-Displaced Heart Sounds: Yes: S1, S2 (RRR, no M/R/G) Edema: No Peripheral Pulses WNL: Yes Integumentary: Yes: WNL Neurological: Yes: Alert, Oriented ...Motor Strength: WNL Psychiatric: Yes: WNL - Other Data Labs, Other Data: CBC, BMP 10/20/18 00:58 10/20/18 05:15 INR, PTT INR 0.86 (0.83-1.09) 10/20/18 00:58 Troponin, BNP 10/20/18 10/20/18 00:58 05:15 Troponin I 0.42 H 2.82 H* Troponin, BNP 10/20/18 10/20/18 00:58 05:15 Troponin I 0.42 H 2.82 H* Reviewed: Initial ECG NSR with ST depressions V4-V6 Upon repeat this AM at around 7AM, ST depressions resolved Echo: Pending Ejection Fraction %: LVEF > or = 40 % Imaging - Results Chest X-ray: Report Reviewed, Image Reviewed EKG: Image Reviewed Problem List - Problems (1) NSTEMI (non-ST elevated myocardial infarction) Code(s): I21.4 - NON-ST ELEVATION (NSTEMI) MYOCARDIAL INFARCTION (2) Diabetes Code(s): E11.9 - TYPE 2 DIABETES MELLITUS WITHOUT COMPLICATIONS Qualifiers: Diabetes mellitus type: type 2 Diabetes mellitus complication status: with circulatory complication (3) Hypertension Code(s): I10 - ESSENTIAL (PRIMARY) HYPERTENSION Qualifiers: Hypertension type: essential hypertension Qualified Code(s): I10 - Essential (primary) hypertension (4) Sarcoidosis Code(s): D86.9 - SARCOIDOSIS, UNSPECIFIED Assessment/Plan IMP: NSTEMI CAD s/p PCI DM with CKD (baseline creatinine 2) HTN Hyperlipidemia Sarcoidosis REC: 1. Echo 2. Continue ASA and Heparin gtts. Atorva allergy, would use high intensity dose Crestor today 3. Tele 4. Will d/w Interventional Cardiology loading dose of 2nd antiplatelet agent ( Plavix allergy). 5. Plan for transfer to [facility] for possible cath.
[2018-10-20] MEDS ORDERED: TICAGRELOR 90 MG TABLET PO ONE (08:38)
--- NOTE | 2018-10-20 09:41 | ECHO ---
Version: 1 Name: CHRISTINE DEL RIO Exam: Adult Echocardiogram Study Date: 10/20/2018, 8:49 AM Age: 68 Years MMode/2D Measurements & Calculations IVSd: 1.19 cm LVIDs: 3.0 cm LVIDd: 4.7 cm LVPWd: 0.93 cm LAV (MOD-bp): 35.6 ml LVOT diam: 2.02 cm Ao root diam: 3.4 cm LA dimension: 2.6 cm Doppler Measurements & Calculations MV E max moose: 61.6 cm/sec Med E/e': 11.8 MV A max moose: 95.6 cm/sec Med Peak E' Moose: 5.2 cm/sec MV E/A: 0.64 Lat E/e': 6.2 Lat Peak E' Moose: 9.9 cm/sec Left Ventricle Ejection Fraction = 50-55%. The transmitral spectral Doppler flow pattern is suggestive of impaired LV relaxation. Moderate inferolateral hypokinesis. Right Ventricle The right ventricle is normal in size and function. Atria Normal left and right atrial size and function. Mitral Valve The mitral valve is normal in structure and function. There is no mitral valve stenosis. There is tr yvonne to mild mitral regurgitation. Tricuspid Valve The tricuspid valve is normal in structure and function. There is trace tricuspid regurgitation. Aortic Valve The aortic valve opens well. No hemodynamically significant valvular aortic stenosis. Pulmonic Valve The pulmonic valve is not well seen, but is grossly normal. There is no pulmonic valvular stenosis. Mild pulmonic valvular regurgitation. Great Vessels The aortic root is normal size. Pericardium/Pleura There is no pericardial effusion. Summary Statements Moderate inferolateral hypokinesis. Ejection Fraction = 50-55%. The transmitral spectral Doppler flow pattern is suggestive of impaired LV relaxation. The right ventricle is normal in size and function. There is trace to mild mitral regurgitation. There is no pericardial effusion. MD Ahmadi *Carly 10/20/2018, 9:40 AM Ordering Physician: Marie Mitchell Performed By: Mercy Bess
[2018-10-20] MEDS ORDERED: METOPROLOL TARTRATE 50 MG TABLET (FP) PO SCH (10:00)
[2018-10-20] MEDS ORDERED: ASPIRIN 81 MG CHEWABLE TABLETS PO SCH (10:00)
--- NOTE | 2018-10-20 11:50 | EKG ---
Test Reason : Blood Pressure : / mmHG Vent. Rate : 076 BPM Atrial Rate : 076 BPM P-R Int : 178 ms QRS Dur : 074 ms QT Int : 360 ms P-R-T Axes : 076 055 021 degrees QTc Int : 405 ms NORMAL SINUS RHYTHM NONSPECIFIC ST ABNORMALITY ABNORMAL ECG WHEN COMPARED WITH ECG OF 20-OCT-2018 00:33, NO SIGNIFICANT CHANGE WAS FOUND Confirmed by GRACIELA JONES, ISACC ([id number]) on 10/20/2018 11:50:05 AM Referred By: Confirmed By:ISACC OWENS MD
--- NOTE | 2018-10-20 11:58 | EKG ---
Test Reason : Blood Pressure : / mmHG Vent. Rate : 083 BPM Atrial Rate : 083 BPM P-R Int : 176 ms QRS Dur : 078 ms QT Int : 366 ms P-R-T Axes : 079 038 063 degrees QTc Int : 430 ms NORMAL SINUS RHYTHM ST depression, consider subendocardial injury ABNORMAL ECG WHEN COMPARED WITH ECG OF 25-MAY-2017 14:53, NON-SPECIFIC CHANGE IN ST SEGMENT IN INFERIOR LEADS ST NOW DEPRESSED IN ANTEROLATERAL LEADS Confirmed by GRACIELA JONES, ISACC ([id number]) on 10/20/2018 11:57:36 AM Referred By: Confirmed By:ISACC OWENS MD
[2018-10-20 12:05] VITALS: BP 125/65
[2018-10-20 12:23] VITALS: PULSE 77
--- NOTE | 2018-10-20 12:41 | DS ---
Physical Exam: SUBJECTIVE: Patient seen and examined at bedside this morning. He endorses significant improvement of his chest pain. Currently patient does not endorse acute new complaints. OBJECTIVE: Vital Signs Period Temp Pulse Resp BP Sys/Cisneros Pulse Ox Last 24 Hr 98.0 F-98.5 F 68-85 18-19 114-126/54-73 98-100 PHYSICAL EXAM GENERAL: The patient is awake, alert, and fully oriented, in no acute distress. HEAD: Normal with no signs of trauma. EYES: PERRL, extraocular movements intact, sclera anicteric, conjunctiva clear. ENT: Oropharynx clear without exudates, moist mucous membranes. NECK: Supple without lymphadenopathy. LUNGS: Breath sounds equal, clear to auscultation bilaterally. No wheezes, no crackles, no accessory muscle use. HEART: Regular rate and rhythm, S1, S2 without murmur, rub or gallop. ABDOMEN: Obese. Soft, nontender to light and deep palpation, nondistended. Normoactive bowel sounds X4 quadrants, no guarding, no rebound. EXTREMITIES: 2+ radial and dorsalis pedis pulses b/l, warm, well-perfused. NEUROLOGICAL: Cranial nerves II through XII grossly intact. Normal speech. No gross focal defecits. PSYCH: Normal mood, normal affect upon my encounter. SKIN: Warm, dry. LABS Laboratory Results - last 24 hr 10/20/18 10/20/18 10/20/18 00:58 00:58 00:58 WBC 6.5 RBC 3.91 L Hgb 12.7 Hct 35.2 L MCV 90.2 MCH 32.5 MCHC 36.0 H RDW 12.9 Plt Count 254 MPV 8.4 Absolute Neuts (auto) 3.8 Neutrophils % 58.9 Lymphocytes % 29.3 Monocytes % 8.6 Eosinophils % 2.2 D Basophils % 1.0 Nucleated RBC % 0 PT with INR 10.10 INR 0.86 PTT (Actin FS) Sodium 134 L Potassium 3.9 Chloride 98 Carbon Dioxide 28 Anion Gap 8 BUN 30 H Creatinine 2.4 H Creat Clearance w eGFR 27.06 POC Glucometer Random Glucose 223 H Hemoglobin A1c % Calcium 8.7 Magnesium 1.6 L Total Bilirubin 0.3 AST 24 ALT 25 Alkaline Phosphatase 52 Creatine Kinase 226 Creatine Kinase Index 2.5 CK-MB (CK-2) 5.8 H Troponin I 0.42 H Total Protein 6.8 Albumin 3.2 L Triglycerides Cholesterol Total LDL Cholesterol HDL Cholesterol 10/20/18 10/20/18 10/20/18 05:15 05:15 05:15 WBC RBC Hgb Hct MCV MCH MCHC RDW Plt Count MPV Absolute Neuts (auto) Neutrophils % Lymphocytes % Monocytes % Eosinophils % Basophils % Nucleated RBC % PT with INR INR PTT (Actin FS) Sodium 136 Potassium 4.0 Chloride 98 Carbon Dioxide 26 Anion Gap 11 BUN 28 H Creatinine 2.4 H Creat Clearance w eGFR 27.06 POC Glucometer Random Glucose 215 H Hemoglobin A1c % Calcium 9.1 Magnesium Total Bilirubin AST ALT Alkaline Phosphatase Creatine Kinase Creatine Kinase Index CK-MB (CK-2) 27.0 H Troponin I 2.82 H* Total Protein Albumin Triglycerides 175 H Cholesterol 199 Total LDL Cholesterol 132 H HDL Cholesterol 32 L 10/20/18 10/20/18 10/20/18 05:15 05:15 07:03 WBC RBC Hgb Hct MCV MCH MCHC RDW Plt Count MPV Absolute Neuts (auto) Neutrophils % Lymphocytes % Monocytes % Eosinophils % Basophils % Nucleated RBC % PT with INR INR PTT (Actin FS) 93.6 H Sodium Potassium Chloride Carbon Dioxide Anion Gap BUN Creatinine Creat Clearance w eGFR POC Glucometer [phone] Random Glucose Hemoglobin A1c % 9.7 H Calcium Magnesium Total Bilirubin AST ALT Alkaline Phosphatase Creatine Kinase Creatine Kinase Index CK-MB (CK-2) Troponin I Total Protein Albumin Triglycerides Cholesterol Total LDL Cholesterol HDL Cholesterol 10/20/18 10/20/18 11:10 12:00 WBC RBC Hgb Hct MCV MCH MCHC RDW Plt Count MPV Absolute Neuts (auto) Neutrophils % Lymphocytes % Monocytes % Eosinophils % Basophils % Nucleated RBC % PT with INR INR PTT (Actin FS) 63.3 H Sodium Potassium Chloride Carbon Dioxide Anion Gap BUN Creatinine Creat Clearance w eGFR POC Glucometer [phone] Random Glucose Hemoglobin A1c % Calcium Magnesium Total Bilirubin AST ALT Alkaline Phosphatase Creatine Kinase Creatine Kinase Index CK-MB (CK-2) Troponin I Total Protein Albumin Triglycerides Cholesterol Total LDL Cholesterol HDL Cholesterol HOSPITAL COURSE: Date of Admission:10/20/18 Date of Discharge: 10/20/18 Patient is a 68 year old male with history of coronary artery disease (s/p stents two years ago at [facility]), hypertension, hyperlipidemia, insulin controlled diabetes mellitus, asthma, presents with complaint of chest pain. EKG showed normal sinus rhythm at 83 beats per minute, and ST depressions in lateral leads. Troponin 0.42 upon admission, increased to 2.81, and subsequently increased to 8.74. Patient placed on telemetry monitoring. Patient was started on Heparin drip, Aspirin, continued on home dose Metoprolol. Plavix was not started due to patient reported history of "internal bleeding"that required transfusions last time he received plavix. Statin was not initiated due to patient complaint of severe myalgias, and intolerance with prior statin medication. Cardiac ECHO showed moderate infeolateral wall hypokinesis, impaired LV wall relaxation. RV normal in size and function. EF 50-55%. Patient was evaluated by verifying machine operator who discussed acute NSTEMI and transferred to [facility] for higher level of care, and cardiac catheterization. Minutes to complete discharge: 35 Discharge Summary Reason For Visit: NON -ST ELEVATION MYOCARDIAL INFARCTION Current Active Problems Diabetes (Acute) Hypertension (Acute) NSTEMI (non-ST elevated myocardial infarction) (Acute) Sarcoidosis (Acute) Condition: Guarded - Instructions Diet, Activity, Other Instructions: You were admitted to the hospital with chest pain. You EKG and bloodwork were concerning, and you are being transferred to [facility] for higher level of care. Continue taking your home medications as directed. Follow the discharge instructions, medication recommendations, and follow up appointments by the physicians at [facility]. Return to the nearest Emergency Department if you experience any worsening symptoms, fevers, chills, shortness of breath, chest pain, palpitations, abdominal pain, nausea, vomiting. Referrals: Aleida Soni MD [Primary Care Provider] - Galdino Carroll MD [Staff Physician] - Disposition: TRANSFER ACUTE CARE/OTHER HOSP - Home Medications Comprehensive Discharge Medication List: Ambulatory Orders Glipizide [Glipizide ER] 10 mg PO DAILY 06/16/16 Losartan/Hydrochlorothiazide [Losartan-Hctz 100-25 mg Tab] 1 each PO DAILY 06/16 Metoprolol Tartrate 50 mg PO DAILY 05/25/17 Insulin Aspart [Novolog] 8 unit SQ TID 10/20/18 Insulin Glargine,Hum.rec.anlog [Lantus] 28 unit SQ BID 10/20/18 This patient is new to me today: Yes Date on this admission: 10/20/18 Emergency Visit: Yes ED Registration Date: 10/20/18 Care time: The patient presented to the Emergency Department on the above date and was hospitalized for further evaluation of their emergent condition. Critical Care patient: No - Discharge Referral Referred to [facility] No
--- NOTE | 2018-10-20 18:13 | PN ---
Teaching Attending Note Name of Resident: Patricio Lyon ATTENDING PHYSICIAN STATEMENT I saw and evaluated the patient. I reviewed the resident's note and discussed the case with the resident. I agree with the resident's findings and plan as documented. SUBJECTIVE: Currently chest pain free on my interview. No palpitations/SOB OBJECTIVE: Afebrile, Hemodynamically stable. Last Vital Signs Temp Pulse Resp BP Pulse Ox 98.0 F 77 18 125/65 98 10/20/18 12:21 10/20/18 12:21 10/20/18 12:21 10/20/18 12:10/20/18 11:30 HEENT - Atraumatic, Normocephalic. Heart - S1, S2, RRR Lungs - clear to auscultation, no crackles/wheeze. Abdomen - Soft, non-tender. Bowel Sounds normal Extremities - no edema. No calf tenderness. Laboratory Results - last 24 hr 10/20/18 10/20/18 10/20/18 00:58 00:58 00:58 WBC 6.5 RBC 3.91 L Hgb 12.7 Hct 35.2 L MCV 90.2 MCH 32.5 MCHC 36.0 H RDW 12.9 Plt Count 254 MPV 8.4 Absolute Neuts (auto) 3.8 Neutrophils % 58.9 Lymphocytes % 29.3 Monocytes % 8.6 Eosinophils % 2.2 D Basophils % 1.0 Nucleated RBC % 0 PT with INR 10.10 INR 0.86 PTT (Actin FS) Sodium 134 L Potassium 3.9 Chloride 98 Carbon Dioxide 28 Anion Gap 8 BUN 30 H Creatinine 2.4 H Creat Clearance w eGFR 27.06 POC Glucometer Random Glucose 223 H Hemoglobin A1c % Calcium 8.7 Magnesium 1.6 L Total Bilirubin 0.3 AST 24 ALT 25 Alkaline Phosphatase 52 Creatine Kinase 226 Creatine Kinase Index 2.5 CK-MB (CK-2) 5.8 H Troponin I 0.42 H Total Protein 6.8 Albumin 3.2 L Triglycerides Cholesterol Total LDL Cholesterol HDL Cholesterol 10/20/18 10/20/18 10/20/18 05:15 05:15 05:15 WBC RBC Hgb Hct MCV MCH MCHC RDW Plt Count MPV Absolute Neuts (auto) Neutrophils % Lymphocytes % Monocytes % Eosinophils % Basophils % Nucleated RBC % PT with INR INR PTT (Actin FS) Sodium 136 Potassium 4.0 Chloride 98 Carbon Dioxide 26 Anion Gap 11 BUN 28 H Creatinine 2.4 H Creat Clearance w eGFR 27.06 POC Glucometer Random Glucose 215 H Hemoglobin A1c % Calcium 9.1 Magnesium Total Bilirubin AST ALT Alkaline Phosphatase Creatine Kinase Creatine Kinase Index CK-MB (CK-2) 27.0 H Troponin I 2.82 H* Total Protein Albumin Triglycerides 175 H Cholesterol 199 Total LDL Cholesterol 132 H HDL Cholesterol 32 L 10/20/18 10/20/18 10/20/18 05:15 05:15 07:03 WBC RBC Hgb Hct MCV MCH MCHC RDW Plt Count MPV Absolute Neuts (auto) Neutrophils % Lymphocytes % Monocytes % Eosinophils % Basophils % Nucleated RBC % PT with INR INR PTT (Actin FS) 93.6 H Sodium Potassium Chloride Carbon Dioxide Anion Gap BUN Creatinine Creat Clearance w eGFR POC Glucometer [phone] Random Glucose Hemoglobin A1c % 9.7 H Calcium Magnesium Total Bilirubin AST ALT Alkaline Phosphatase Creatine Kinase Creatine Kinase Index CK-MB (CK-2) Troponin I Total Protein Albumin Triglycerides Cholesterol Total LDL Cholesterol HDL Cholesterol 10/20/18 10/20/18 10/20/18 11:10 11:15 12:00 WBC RBC Hgb Hct MCV MCH MCHC RDW Plt Count MPV Absolute Neuts (auto) Neutrophils % Lymphocytes % Monocytes % Eosinophils % Basophils % Nucleated RBC % PT with INR INR PTT (Actin FS) 63.3 H Sodium Potassium Chloride Carbon Dioxide Anion Gap BUN Creatinine Creat Clearance w eGFR POC Glucometer 168.47182 Random Glucose Hemoglobin A1c % Calcium Magnesium Total Bilirubin AST ALT Alkaline Phosphatase Creatine Kinase 602 H Creatine Kinase Index 5.9 H CK-MB (CK-2) 37.0 H Troponin I 8.74 H* Total Protein Albumin Triglycerides Cholesterol Total LDL Cholesterol HDL Cholesterol Current Medications Generic Name Dose Route Start Last Admin Trade Name Freq PRN Reason Stop Dose Admin Albuterol Sulfate 1 amp 10/20/18 04:46 Ventolin 0.083% Nebulizer Soln - NEB Q6H PRN SHORT OF BREATH/WHEEZING Aspirin 81 mg 10/20/18 10:00 10/20/18 10:19 Asa - PO 81 mg DAILY WILLI Administration Heparin Sodium (Porcine) 1,000 unit 10/20/18 01:57 Heparin - IVPUSH PRN PRN Heparin Heparin Sodium (Porcine) 5,000 unit 10/20/18 01:57 02/01/19 02:10 Heparin - IVPUSH 5,000 unit PRN PRN Administration Heparin Heparin Sodium (Porcine) 25, 500 mls @ 20 mls/hr 10/20/18 02:00 10/20/18 02: 10 000 unit/ Sodium Chloride IV 1,000 unit/hr TITR WILLI 20 mls/hr Administration Protocol 1,000 UNIT/HR Insulin Aspart 1 vial 10/20/18 07:00 10/20/18 11:42 Novolog Vial Sliding Scale - SQ Not Given ACHS [facility] Protocol Metoprolol Tartrate 50 mg 10/20/18 10:00 10/20/18 10:19 Lopressor - PO 50 mg DAILY [facility] Administration Home Medications Medication Instructions Recorded Glipizide [Glipizide ER] 10 mg PO DAILY 06/16/16 Losartan/Hydrochlorothiazide 1 each PO DAILY 06/16/16 [Losartan-Hctz 100-25 mg Tab] Metoprolol Tartrate 50 mg PO DAILY 05/25/17 Insulin Aspart [Novolog] 8 unit SQ TID 10/20/18 Insulin Glargine,Hum.rec.anlog 28 unit SQ BID 10/20/18 [Lantus] ASSESSMENT AND PLAN: 68 year old male with CAD s/p OK, s/p PCI with 2 stents, HTN, DM 2, HLD, presents with left sided chest pain that awoke him from sleep, with associated shortness of breath, diaphoresis, with some relief with Nitro. 1. Acute NSTEMI Troponin elevated to max 8 ECG - ST depression in V4-6. Started on Heparin drip for ACS. Continue Aspirin, Metoprolol. Prior adverse reactions to Plavix and Statin. Echo - moderate inferolateral hypokinesis with EF 50-55% Cardiology consulted and patient transferred to [facility] for cardiac cath. 2. DM 2 - Uncontrolled. A1C 9.7. Maintain on sliding scale insulin. Glipizide held. 3. CKD 3 - stable. 4. HTN - Continue Metoprolol. Normally on Metoprolol, Losartan/HCTZ. Medical necessity for transfer to [facility] for further ACS management and possible Cardiac Cath.
== END 2018-10-20 12:34 | disposition short-term general hospital (02) | DRG 281 ==
LOC: JER 00:14 → JERBED 03:26
PROVIDERS: ADMIT Internal Medicine
DX: I21.4 Non-ST elevation (NSTEMI) myocardial infarction (principal); E46 Unspecified protein-calorie malnutrition; I25.10 Atherosclerotic heart disease of native coronary artery without angina pectoris; Z98.61 Coronary angioplasty status; E78.5 Hyperlipidemia, unspecified; I12.9 Hypertensive chronic kidney disease with stage 1 through stage 4 chronic kidney disease, or unspecified chronic kidney disease; E11.22 Type 2 diabetes mellitus with diabetic chronic kidney disease; E11.65 Type 2 diabetes mellitus with hyperglycemia; N18.3 Chronic kidney disease, stage 3 (moderate); R07.9 Chest pain, unspecified; D86.9 Sarcoidosis, unspecified; J45.909 Unspecified asthma, uncomplicated; E88.09 Other disorders of plasma-protein metabolism, not elsewhere classified; D63.1 Anemia in chronic kidney disease; E66.9 Obesity, unspecified; Z68.30 Body mass index [BMI] 30.0-30.9, adult
CPT/HCPCS: 36415; 71045-TC-FY; 80048; 80053; 80061; 82550; 82553; 82962; 83036; 83721; 83735; 84484; 85025; 85610; 85730; 93005; 93010; 93306-TC; 99285-25; J1644

== ENCOUNTER 2018-12-12 09:49 | Observation (INO) | payer MEDICARE, OTHER ==
[2018-12-12] MEDS ORDERED: ASPIRIN 81 MG CHEWABLE TABLETS PO ONE (10:15)
[2018-12-12] MEDS ORDERED: ASPIRIN 81 MG CHEWABLE TABLETS ONE (10:37)
[2018-12-12 10:39] LABS: BASO % 1.2 % (0-2.0); EOS % 2.3 % (0-4.5); HEMATOCRIT 34.1 % (35.4-49); HEMOGLOBIN 11.5 GM/dL (11.7-16.9); LYMPH % 22.1 % (8-40); MCH 30.1 pg (25.7-33.7); MCHC 33.6 g/dl (32.0-35.9); MEAN CELL VOLUME 89.4 fl (80-96); MEAN PLT VOLUME 8.3 fl (7.5-11.1); MONO % 8.4 % (3.8-10.2); PLATELET COUNT 341 K/MM3 (134-434); RBC 3.81 M/mm3 (4.00-5.60); RDW 14.9 % (11.9-15.9); WHITE BLOOD COUNT 6.5 K/mm3 (4.0-10.0)
--- NOTE | 2018-12-12 10:57 | PDOC ---
History of Present Illness - General Chief Complaint: Shortness of Breath Stated Complaint: CHEST PAIN Time Seen by Provider: 12/12/18 10:07 History Source: Patient Exam Limitations: No Limitations - History of Present Illness Initial Comments: 12/12/18 10:50 68YOM with h/o CAD s/p 2 stents followed years later by CABG done in early october 2018), HTN, DM2, HLD, and asthma, who p/w acute onset SOB and chest heaviness persisting since this morning at 7 am. He used his Symbicort inhaler without relief. He took his blood pressure at home, which was normal, b he called his tape librarian Dr. Carroll out of concern that his heart was beating fast. Dr. Carroll instructed him to come into the ED. The patient notes that he had a mild cough and runny nose yesterday afternoon, but denies any other recent symptoms (no f/c/n/v/d/c, abdominal pain or distention, back pain, MENCHACA, dizziness/lightheadedness, n/t/w, or other symptoms). He did not take ASA after the onset. Past History - Past Medical History Allergies/Adverse Reactions: Allergies Allergy/AdvReac Type Severity Reaction Status Date / Time clopidogrel bisulfate Allergy Severe Difficulty Verified 12/12/18 09:51 [From Plavix] Breathing atorvastatin calcium AdvReac Severe Muscle Verified 12/12/18 09:51 [From Lipitor] Spasms Home Medications: Ambulatory Orders Glipizide [Glipizide ER] 5 mg PO BID 06/16/16 Losartan/Hydrochlorothiazide [Losartan-Hctz 100-25 mg Tab] 1 each PO DAILY 06/16 Metoprolol Tartrate 25 mg PO BID 05/25/17 Insulin Aspart [Novolog] 15 unit SQ TID 10/20/18 Amlodipine Besylate 5 mg PO DAILY 12/12/18 Aspirin 81 mg PO DAILY 12/12/18 Insulin Detemir [Levemir Flextouch] 20 unit SQ BID 12/12/18 Sitagliptin Phos/Metformin HCl [Janumet 50-1,000 mg Tablet] 1 tab PO DAILY 12/12 Tamsulosin HCl 0.4 mg PO DAILY 12/12/18 Ticagrelor [Brilinta -] 90 mg PO BID tablet 12/14/18 Anemia: Yes Asthma: Yes Cancer: No Cardiac Disorders: Yes ([place], stents,CABG) CVA: No COPD: No CHF: No DVT: No Dementia: No Diabetes: Yes GI Disorders: Yes (GERD) Disorders: No HTN: Yes Hypercholesterolemia: Yes Liver Disease: No Seizures: No Thyroid Disease: No - Surgical History Abdominal Surgery: No Appendectomy: No Cardiac Surgery: Yes (2 STENTS,CABG) Cholecystectomy: No Lung Surgery: No Neurologic Surgery: No Orthopedic Surgery: No - Immunization History Td Vaccination: Yes Immunization Up to Date: Yes - Suicide/Smoking/Psychosocial Hx Smoking Status: No Smoking History: Never smoked Years of Tobacco Use: 0 Have you smoked in the past 12 months: No Number of Cigarettes Smoked Daily: 0 Cigars Per Day: 0 Hx Alcohol Use: No Drug/Substance Use Hx: No Substance Use Type: None Hx Substance Use Treatment: No Cardiac Specific PMH - Complaint Specific PMHX Angina: No Cardiac Arrhythmia: No GERD: No Pacemaker: No Peripheral Vascular Disease: No Review of Systems - Review of Systems Able to Perform ROS?: Yes Comments:: 12/12/18 11:01 GEN: no fever, chills, malaise, generalized weakness, or weight change HEENT: no ear pain, sore throat, vision change, or eye pain CV: chest heaviness, rapid palpitations, no lightheadedness, syncope, or edema RESP: cough, SOB, no wheezing GI: no abdominal pain, nausea, vomiting, diarrhea, constipation, or white/black/ bloody stool : no dysuria, hematuria, incontinence, retention, bleeding, or discharge MSK: no neck/back pain, muscle weakness/pain, or joint swelling/pain NEURO: no headache, seizure, vertigo, numbness, tingling, or focal weakness PSYCH: no substance use, no behavior change SKIN: no jaundice, no rash ROS otherwise negative except as noted in HPI *Physical Exam - Vital Signs Last Vital Signs Temp Pulse Resp BP Pulse Ox 98.5 F 83 20 146/85 97 12/14/18 01:59 12/14/18 01:59 12/14/18 01:59 12/14/18 01:59 12/13/18 22:00 - Physical Exam Comments: 12/12/18 11:02 GENERAL: well-appearing, stoic, A/Ox4, no distress, answers questions appropriately HEENT: PERRLA, EOMI, moist mucous membranes NECK/BACK: midline transverse scar from prior stated tracheostomy, no midline ttp, no spinal stepoff or deformity, no hematoma, full ROM, neck supple CARDIOVASCULAR: regular rate/rhythm, normal S1S2, no MGR, strong peripheral pulses, capillary refill <2 seconds, extremities wwp, no edema LUNGS/RESPIRATORY: no respiratory distress, CTAB GI/ABDOMEN: symmetric [id number], normoactive BS, soft, no ttp, no midline pulsatile masses : no CVA tenderness EXTREMITIES: no muscle atrophy, no acute deformity SKIN: warm and dry, no pallor, no jaundice, no rash, no bruising, no skin breakdown, no cuts, no lesions NEUROLOGICAL: GCS 15, CN II-XII grossly intact, 5/5 strength proximally and distally, no facial droop Heart Score/ECG Review - History History: Moderately suspicious - Electrocardiogram EKG: Non specific repolarization disturbance - Age Age: >/= 65 - Risk Factors Risk Factors Heart Score: Yes Hx Hypercholesterolemia, Yes Hx Hypertension, Yes Hx Diabetes Based on the list above the patient has:: >/=3 risk factors or Hx atherosclerotic disease - Troponin Troponin: 1-3x normal limit - Score Heart Score - Total: 7 #1 12/12/18 12:17 Sinus tachycardia, rate 108, normal axis and intervals, anterior small ZENON without reciprocal changes. ED Treatment Course - LABORATORY CBC & Chemistry Diagram: 12/13/18 05:30 12/13/18 05:30 - ADDITIONAL ORDERS Additional order review: 12/12/18 10:24 RBC 3.81 L MCV 89.4 MCHC 33.6 RDW 14.9 MPV 8.3 Neutrophils % 66.0 Lymphocytes % 22.1 D Monocytes % 8.4 Eosinophils % 2.3 Basophils % 1.2 - RADIOLOGY Radiology Studies Ordered: Category Date Time Status CHEST PA & LAT [RAD] Stat Radiology 12/12/18 10:15 Completed - Medications Given in the ED: ED Medications Discontinued Medications Generic Name Dose Route Start Last Admin Trade Name Freq PRN Reason Stop Dose Admin Acetaminophen 650 mg 12/12/18 20:13 12/12/18 20:22 Tylenol - PO 12/12/18 20:14 650 mg ONCE ONE Administration Acetaminophen 650 mg 12/13/18 18:16 03/27/19 18:20 Tylenol - PO 12/13/18 18:17 650 mg ONCE ONE Administration Acetaminophen 650 mg 12/13/18 19:19 12/13/18 22:17 Tylenol - PO 12/13/18 19:20 Not Given ONCE ONE Amlodipine Besylate 5 mg 12/13/18 10:00 12/13/18 09:10 Norvasc - PO 5 mg DAILY WILLI Administration Aspirin 162 mg 12/12/18 10:15 12/12/18 10:39 Asa - PO 12/12/18 10:16 162 mg ONCE ONE Administration Aspirin 81 mg 12/13/18 10:00 12/13/18 09:10 Asa - PO 81 mg DAILY REPLACED BY [facility] Administration Heparin Sodium (Porcine) 5,000 unit 12/12/18 18:00 12/13/18 17:46 Heparin - SQ 5,000 unit Q8H-IV REPLACED BY [facility] Administration Hydrochlorothiazide 25 mg 12/13/18 10:00 12/13/18 09:10 Hctz - PO 25 mg DAILY WILLI Administration Insulin Aspart 0 vial 12/12/18 16:30 12/13/18 22:17 Novolog Vial Sliding Scale - SQ Not Given ACHS REPLACED BY [facility] Protocol Losartan Potassium 100 mg 12/13/18 10:00 12/13/18 09:10 Cozaar - PO 100 mg DAILY REPLACED BY [facility] Administration Magnesium Sulfate 2 gm 12/13/18 07:37 12/13/18 08:36 Magnesium Sulfate IVPB 12/13/18 07:38 2 gm ONCE ONE Administration Metoprolol Tartrate 25 mg 12/13/18 10:00 12/13/18 22:16 Lopressor - PO 25 mg BID REPLACED BY [facility] Administration Regadenoson 0.4 mg 12/13/18 09:45 12/13/18 12:30 Lexiscan IVPUSH 12/13/18 09:46 0.4 mg ONCE ONE Administration Tamsulosin HCl 0.4 mg 12/13/18 08:30 12/13/18 08:36 Flomax - PO 0.4 mg DAILY@0830 REPLACED BY [facility] Administration Ticagrelor 90 mg 12/13/18 10:00 12/13/18 22:16 Brilinta - PO 90 mg BID REPLACED BY [facility] Administration Medical Decision Making - Medical Decision Making 12/12/18 13:04 Adult Pt p/w chest pain. Initial Vital Signs Temp Pulse Resp BP Pulse Ox 98.2 F 103 H 22 H 116/71 99 12/12/18 09:51 12/12/18 09:51 12/12/18 09:51 12/12/18 09:51 12/12/18 09:51 Exam: As noted in Physical Exam section. DDX IBNLT: ACS, pericarditis, tamponade, aortic dissection, AAA, PTX, PE, esophageal tear, esophagitis (e.g. pill, infectious), esophageal stricture, esophageal FB, gastritis, PUD, pancreatitis, cholecystitis, cholangitis, colitis , bowel perforation, PNA/bronchitis, pleurisy, pleuritis, MVP, pulmonary HTN, musculoskeletal, panic/anxiety, etc. W/U ordered: CBCD CMP Mg Phos Lipase Troponin CK CKMB Coags T&S Blood gas UA UCx EKG CXR. TX ordered: monitor, ASA 324, NTG, O2 via NC if needed, statin, maybe metoprolol. EKG: Reviewed; results as noted in ECG Review section. CXR: Nothing acute Laboratory Tests 12/12/18 12/12/18 12/12/18 10:24 10:24 10:24 WBC 6.5 RBC 3.81 L Hgb 11.5 L Hct 34.1 L MCV 89.4 MCH 30.1 MCHC 33.6 RDW 14.9 Plt Count 341 MPV 8.3 Absolute Neuts (auto) 4.3 Neutrophils % 66.0 Lymphocytes % 22.1 D Monocytes % 8.4 Eosinophils % 2.3 Basophils % 1.2 Nucleated RBC % 0 PT with INR 11.90 INR 1.01 Sodium 131 L Potassium 4.2 Chloride 97 L Carbon Dioxide 28 Anion Gap 7 L BUN 27 H Creatinine 2.0 H Creat Clearance w eGFR 33.39 Random Glucose 306 H* Calcium 9.2 Magnesium 1.7 L Total Bilirubin 0.4 AST 13 L ALT 16 Alkaline Phosphatase 52 Creatine Kinase 96 Troponin I 0.09 H B-Natriuretic Peptide 390.0 H Total Protein 7.4 Albumin 3.2 L ADMIT HEART score indicates Pt is higher risk and should be managed in hospital with cardiology consult. The Pt is unsafe for discharge at this time. They require further hospital observation, workup, and treatment. Microblog sent to [facility] for admission. Blank Decision to Admit order is placed per ED protocol. 12/12/18 13:05 Spoke with admitting team goodwill representative, in agreement Pt to be admitted to Tele Obs. Decision to Admit order placed to admitting team covering attending Dr. Fierro. Consult order placed to Dr. Carroll and call placed to him. *DC/Admit/Observation/Transfer Diagnosis at time of Disposition: Troponin I above reference range, Hyperglycemia, SOB (shortness of breath) Chest pain Qualifiers: Chest pain type: unspecified Qualified Code(s): R07.9 - Chest pain, unspecified - Discharge Dispostion Condition at time of disposition: Guarded Decision to Admit order: Yes - Referrals - Patient Instructions - Post Discharge Activity
[2018-12-12 11:04] LABS: INR 1.01 (0.83-1.09); PROTHROMBIN TIME (PATIENT) 11.9 SEC (9.7-13.0)
[2018-12-12 11:10] LABS: ALBUMIN 3.2 g/dl (3.4-5.0); ALK PHOS 52 U/L (45-117); ANION GAP 7 MMOL/L (8-16); BILIRUBIN,TOTAL 0.4 mg/dL (0.2-1); BLOOD UREA NITROGEN 27 mg/dL (7-18); CALCIUM 9.2 mg/dL (8.5-10.1); CHLORIDE 97 mmol/L (98-107); CO2 28 mmol/L (21-32); MAGNESIUM 1.7 mg/dL (1.8-2.4); POTASSIUM 4.2 mmol/L (3.5-5.1); SGOT/AST 13 U/L (15-37); SGPT/ALT 16 U/L (13-61); SODIUM 131 mmol/L (136-145); TOT PROT 7.4 g/dl (6.4-8.2)
[2018-12-12 11:20] LABS: GLUCOSE,RANDOM 306 mg/dL (74-106)
--- NOTE | 2018-12-12 12:17 | PDOC ---
Attending Attestation - Resident Resident Name: Maris Ornelas - ED Attending Attestation I have performed the following: I have examined & evaluated the patient, The case was reviewed & discussed with the resident, I agree w/resident's findings & plan, Exceptions are as noted - HPI HPI: 12/12/18 12:15 68 M with h/o CAD/CABG, asthma, HTN, HLD, presenting to ED with SOB and chest pressure. Pt states he was awoken from sleep with these symptoms at 7am. He used his inhaler without relief. Pt spoke with Dr. Carroll, who advised pt to come to ED for evaluation. Pt denies any F/C. Endorses cough with nasal congestion. No new leg swelling or calf pain. - Physicial Exam PE: 12/12/18 12:16 GENERAL: Awake, alert, and fully oriented, in no acute distress. HEAD: No signs of trauma EYES: PERRLA, EOMI, sclera anicteric, conjunctiva clear ENT: Auricles normal inspection, hearing grossly normal, nares patent, oropharynx clear without exudates. Moist mucosa NECK: Nontender, no stepoffs, Normal ROM, supple, no lymphadenopathy, JVD, or masses LUNGS: + wheezing HEART: Regular rate and rhythm, normal S1 and S2, no murmurs, rubs or gallops ABDOMEN: Soft, nontender, normoactive bowel sounds. No guarding, no rebound. No masses EXTREMITIES: Normal range of motion, no edema. No clubbing or cyanosis. No cords, erythema, or tenderness NEUROLOGICAL: Cranial nerves II through XII intact. 5/5 strength and sensation in all extremities, Normal speech, normal gait, normal cerebellar function SKIN: Warm, Dry, normal turgor, no rashes or lesions noted. - Medical Decision Making 12/12/18 12:16 68 M with SOB and chest pressure. Likely asthma flare. However, pt with significant cardiac history and complaining of chest pressure. EKG today shows worsening TWI in inferior leads compared to prior EKG. - Labs, trop, BNP - CXR - Nebs, steroids
--- NOTE | 2018-12-12 13:11 | HP ---
CHIEF COMPLAINT: SOB, Chest pain PCP: Dr. Aleida Soni Cards: Carly HISTORY OF PRESENT ILLNESS: The patient is a 68 yo m w/ PMH DM, CAD s/p [place] and CABG 10/23/18 who comes into the ED c/o a 1 week history of chest discomfort and SOB. The patient states that 1 week ago, he began to experience a dull chest pain all across his chest which was occasionally associated with left arm soreness. This chest pain occurred several times over the course of the week, but has not been changing in intensity. Each chest pain episode was self limited and improved when the patient went outside to take a walk. Yesterday, the patient went outside to take a walk and began to feel SOB and fatigue, which was different for him and caused him to return home. This AM, the patient woke up and began to feel SOB and chest pain. The patient took his symobicort inhaler at home, which did not help his symptoms. The patient called his software validation technician, Dr. Carroll as his chest pain had not been associated with SOB before. Dr. Carroll sent him to the ER for evaluation. Patient denies fever, chills, sick contacts, abdominal pain. Of note, the patient saw his software validation technician 3 weeks ago and was scheduled to start an outpatient physical therapy/cardiac rehab program today. The patient's last stress test was last summer. ER course was notable for: (1) EKG showing new t wave inversions/ ST depressions in the inferior leads. (2) 162 mg ASA (3) Recent Travel: none PAST MEDICAL HISTORY: see HPI PAST SURGICAL HISTORY: See HPI Social History: Smoking: denies Alcohol: denies Drugs: denies Family History: non-contributory Allergies clopidogrel bisulfate [From Plavix] Allergy (Severe, Verified 12/12/18 09:51) Difficulty Breathing atorvastatin calcium [From Lipitor] Adverse Reaction (Severe, Verified 12/12/18 09:51) Muscle Spasms HOME MEDICATIONS: Home Medications Medication Instructions Recorded Glipizide [Glipizide ER] 10 mg PO DAILY 06/16/16 Losartan/Hydrochlorothiazide 1 each PO DAILY 06/16/16 [Losartan-Hctz 100-25 mg Tab] Metoprolol Tartrate 50 mg PO DAILY 05/25/17 Insulin Aspart [Novolog] 8 unit SQ TID 10/20/18 Insulin Glargine,Hum.rec.anlog 28 unit SQ BID 10/20/18 [Lantus] REVIEW OF SYSTEMS CONSTITUTIONAL: Absent: fever, chills, diaphoresis, generalized weakness, malaise, loss of appetite, weight change HEENT: Absent: rhinorrhea, nasal congestion, throat pain, throat swelling, difficulty swallowing, mouth swelling, ear pain, eye pain, visual changes CARDIOVASCULAR: Absent: syncope, irregular heart rate, lightheadedness, peripheral edema RESPIRATORY: Absent: cough, orthopnea, wheezing, stridor, hemoptysis GASTROINTESTINAL: Absent: abdominal pain, abdominal distension, nausea, vomiting, diarrhea, constipation, melena, hematochezia GENITOURINARY: Absent: dysuria, frequency, urgency, hesitancy, hematuria, flank pain, genital pain MUSCULOSKELETAL: Absent: myalgia, arthralgia, joint swelling, back pain, neck pain SKIN: Absent: rash, itching, pallor HEMATOLOGIC/IMMUNOLOGIC: Absent: easy bleeding, easy bruising, lymphadenopathy, frequent infections ENDOCRINE: Absent: unexplained weight gain, unexplained weight loss, heat intolerance, cold intolerance NEUROLOGIC: Absent: headache, focal weakness or paresthesias, dizziness, unsteady gait, seizure, mental status changes, bladder or bowel incontinence PSYCHIATRIC: Absent: anxiety, depression, suicidal or homicidal ideation, hallucinations. PHYSICAL EXAMINATION Vital Signs - 24 hr 12/12/18 09:51 Temperature 98.2 F Pulse Rate 103 H Respiratory 22 H Rate Blood Pressure 116/71 O2 Sat by Pulse 99 Oximetry (%) GENERAL: Awake, alert, and fully oriented, in no acute distress. HEAD: Normal with no signs of trauma. NECK: Normal range of motion, supple without lymphadenopathy, JVD, or masses. LUNGS: Breath sounds equal, clear to auscultation bilaterally. No wheezes, and no crackles. No accessory muscle use. HEART: Regular rate and rhythm, normal S1 and S2 without murmur, rub or gallop. no tenderness to palpation over the chest. ABDOMEN: Soft, nontender, not distended, normoactive bowel sounds, no guarding, no rebound, no masses. No hepatomegaly or splenomegaly. LOWER EXTREMITIES: 2+ pulses, warm, well-perfused. No calf tenderness. No peripheral edema. NEUROLOGICAL: Cranial nerves II-X intact. Normal speech. SKIN: Warm, dry, normal turgor, no rashes or lesions noted, normal capillary refill. Laboratory Results - last 24 hr 12/12/18 12/12/18 12/12/18 10:24 10:24 10:24 WBC 6.5 RBC 3.81 L Hgb 11.5 L Hct 34.1 L MCV 89.4 MCH 30.1 MCHC 33.6 RDW 14.9 Plt Count 341 MPV 8.3 Absolute Neuts (auto) 4.3 Neutrophils % 66.0 Lymphocytes % 22.1 D Monocytes % 8.4 Eosinophils % 2.3 Basophils % 1.2 Nucleated RBC % 0 PT with INR 11.90 INR 1.01 Sodium 131 L Potassium 4.2 Chloride 97 L Carbon Dioxide 28 Anion Gap 7 L BUN 27 H Creatinine 2.0 H Creat Clearance w eGFR 33.39 Random Glucose 306 H* Calcium 9.2 Magnesium 1.7 L Total Bilirubin 0.4 AST 13 L ALT 16 Alkaline Phosphatase 52 Creatine Kinase 96 Troponin I 0.09 H B-Natriuretic Peptide 390.0 H Total Protein 7.4 Albumin 3.2 L ASSESSMENT/PLAN: The patient is a 68 yo m w/ PMH DM, CAD s/p [place] and CABG 10/23/18 who comes into the ED c/o a 1 week history of chest discomfort and SOB. #CP, SOB, troponemia concerning for ACS -no active CP at this time -will trend trop -consult cardiology: Dr. Carroll -reccomends trending trop and observation on tele -will possible stress in AM depending on trop results #DM -holding oral hypoglycemics -BGM ACHS -ISS ACHS #FEN -no fluids indicated -lytes WNL, monitor -diabetic diet; will make NPO past midnight if stress test planned for AM #Prophy -Heparin SQ 5k units q8h #dispo -observe on tele -dispo dependent on cardio recs -Home meds verified with patient's pharmacy Visit type - Emergency Visit Emergency Visit: Yes ED Registration Date: 12/12/18 Care time: The patient presented to the Emergency Department on the above date and was hospitalized for further evaluation of their emergent condition. - New Patient This patient is new to me today: Yes Date on this admission: 12/12/18 - Critical Care Critical Care patient: No
--- NOTE | 2018-12-12 14:58 | PN ---
Teaching Attending Note Name of Resident: Leonidas Tolliver ATTENDING PHYSICIAN STATEMENT I saw and evaluated the patient. I reviewed the resident's note and discussed the case with the resident. I agree with the resident's findings and plan as documented. SUBJECTIVE:68 yo m w/ PMH DM, CAD s/p [place] and CABG 10/23/18 and CKD who comes into the ED c/o a 1 week history of chest discomfort and SOB. has been having intermittent CP that is squeezing in nature with radiation to the L shoulder. had 2 episodes of dyspnea once yesterday when walking outside and once today when going to the bathroom assoc with palpitations. he went to see his boilermaker mechanic who sent him to the hospital for evaluation. denies CP at this time , SOB, fever, chills, N/V/C/D OBJECTIVE: Last Vital Signs Temp Pulse Resp BP Pulse Ox 98.2 F 103 H 22 H 116/71 99 12/12/18 09:51 12/12/18 09:51 12/12/18 09:51 12/12/18 09:51 12/12/18 09:51 General NAD CV S1 S2 RRR Lungs CTA B/L no wheezing/rales/rhonchi ASSESSMENT AND PLAN: 68 yo m w/ PMH DM, CAD s/p [place] and CABG 10/23/18 and CKD who comes into the ED c/o a 1 week history of chest discomfort and SOB and found to have a mild tropinemia 1. CP- First troponin 0.09. with T wave inversions in the inferior and lateral leads. spoke with Dr Carroll who stated this is consistent with recent EKG done in the office. concern is raised for new onet CHF in setting of recent CABG. will monitor on cardiac tele, troponins Q6H with EKG, repeat echo. will consider stress test if troponins rise. cont asa/brilinta/metoprolol 2. Hyponatremia 3. CKD- at baseline 4. DM- hold oral agents. iss and bgm 5. DVT ppx- EAM
[2018-12-12] MEDS: INSULIN SLIDING SCALE (NOVOLOG) 1 VIAL SQ SCH ×2 (17:59→22:41)
[2018-12-12] MEDS ORDERED: HEPARIN NA (PORCINE) 5,000 UNITS/ML 1ML VIAL ONE (18:19)
[2018-12-12] MEDS: HEPARIN NA (PORCINE) 5,000 UNITS/ML 1ML VIAL SQ SCH (18:25)
[2018-12-12] MEDS ORDERED: ACETAMINOPHEN 325 MG TABLET (FP) PO ONE (20:13)
[2018-12-12 20:33] VITALS: BMI 28.7
--- NOTE | 2018-12-12 21:59 | EKG ---
Test Reason : Blood Pressure : / mmHG Vent. Rate : 098 BPM Atrial Rate : 098 BPM P-R Int : 162 ms QRS Dur : 084 ms QT Int : 340 ms P-R-T Axes : 071 069 -79 degrees QTc Int : 434 ms NORMAL SINUS RHYTHM POSSIBLE LEFT ATRIAL ENLARGEMENT POSSIBLE ANTERIOR INFARCT , AGE UNDETERMINED ABNORMAL ECG WHEN COMPARED WITH ECG OF 20-OCT-2018 07:02, T WAVE INVERSION NOW EVIDENT IN INFERIOR LEADS Confirmed by MD CHARISSA, LUCRECIA ([id number]) on 12/12/2018 9:59:27 PM Referred By: Confirmed By:LUCRECIA CARRINGTON MD
[2018-12-13] MEDS: HEPARIN NA (PORCINE) 5,000 UNITS/ML 1ML VIAL SQ SCH ×3 (02:54→17:46)
[2018-12-13] MEDS: INSULIN SLIDING SCALE (NOVOLOG) 1 VIAL SQ SCH ×4 (06:32→22:17)
[2018-12-13 06:54] LABS: HEMATOCRIT 34.5 % (35.4-49); HEMOGLOBIN 11.7 GM/dL (11.7-16.9); MCH 30.2 pg (25.7-33.7); MCHC 33.9 g/dl (32.0-35.9); MEAN CELL VOLUME 89.2 fl (80-96); MEAN PLT VOLUME 8.3 fl (7.5-11.1); PLATELET COUNT 336 K/MM3 (134-434); RBC 3.87 M/mm3 (4.00-5.60); RDW 14.8 % (11.9-15.9); WHITE BLOOD COUNT 5.5 K/mm3 (4.0-10.0)
[2018-12-13 07:16] LABS: ALBUMIN 3.1 g/dl (3.4-5.0); ALK PHOS 51 U/L (45-117); ANION GAP 4 MMOL/L (8-16); BILIRUBIN,TOTAL 0.3 mg/dL (0.2-1); BLOOD UREA NITROGEN 25 mg/dL (7-18); CALCIUM 9.2 mg/dL (8.5-10.1); CHLORIDE 100 mmol/L (98-107); CO2 32 mmol/L (21-32); CREATININE 1.8 mg/dL (0.55-1.3); GLUCOSE,RANDOM 134 mg/dL (74-106); MAGNESIUM 1.7 mg/dL (1.8-2.4); PHOSPHOROUS 4.4 mg/dL (2.5-4.9); POTASSIUM 4.4 mmol/L (3.5-5.1); SGOT/AST 13 U/L (15-37); SGPT/ALT 15 U/L (13-61); SODIUM 136 mmol/L (136-145); TOT PROT 7.2 g/dl (6.4-8.2)
[2018-12-13 07:20] LABS: INR 1.03 (0.83-1.09); PROTHROMBIN TIME (PATIENT) 12.2 SEC (9.7-13.0)
[2018-12-13 07:23] LABS: ACTIVATED PTT 37.8 SECONDS (25.2-36.5)
[2018-12-13] MEDS ORDERED: MAGNESIUM SULF 50% (8.12 MEQ/2 ML-1 GM VIAL) IVPB ONE (07:37)
[2018-12-13] MEDS ORDERED: TAMSULOSIN HCL 0.4 MG CAP PO SCH (08:30)
--- NOTE | 2018-12-13 08:57 | PN ---
Progress Note, Physician Chief Complaint: 68M CAD s/p PCI, DM, CKD, HTN, Sarcoid, recent 4 V CABG at [facility]: VINSON to LAD, and 3 vein grafts Now returns with episode of exertional dyspnea, dizziness and mild chest tightness. This occurred in "cold air". He denies palpitations, edema, PND, orthopnea, syncope. No fevers, chills or cough ECG shows same diffuse ST changes inferiorly and laterally seen on his first post op ECG in office - Current Medication List Current Medications: Active Medications Amlodipine Besylate (Norvasc -) 5 mg PO DAILY [facility] Aspirin (Asa -) 81 mg PO DAILY [facility] Heparin Sodium (Porcine) (Heparin -) 5,000 unit SQ Q8H-IV [facility] Last Admin: 12/13/18 02:54 Dose: 5,000 unit Hydrochlorothiazide (Hctz -) 25 mg PO DAILY [facility] Insulin Aspart (Novolog Vial Sliding Scale -) 0 vial SQ ACHS [facility]; Protocol Last Admin: 12/13/18 06:32 Dose: Not Given Losartan Potassium (Cozaar -) 100 mg PO DAILY [facility] Metoprolol Tartrate (Lopressor -) 25 mg PO BID [facility] Tamsulosin HCl (Flomax -) 0.4 mg PO DAILY@0830 [facility] Last Admin: 12/13/18 08:36 Dose: 0.4 mg - Objective Vital Signs: Vital Signs Temperature 98.1 F 12/13/18 06:00 Pulse Rate 91 H 12/13/18 06:00 Respiratory Rate 18 12/13/18 06:00 Blood Pressure 126/68 12/13/18 06:00 O2 Sat by Pulse Oximetry (%) 98 12/13/18 05:00 Constitutional: Yes: No Distress Cardiovascular: Yes: Regular Rate and Rhythm Respiratory: Yes: CTA Bilaterally (no wheezing or rales) Gastrointestinal: Yes: Soft Edema: No Peripheral Pulses WNL: Yes Neurological: Yes: Alert, Oriented Labs: CBC, BMP 12/13/18 05:30 12/13/18 05:30 INR, PTT INR 1.03 (0.83-1.09) 12/13/18 05:30 Laboratory Tests 12/12/18 12/12/18 12/13/18 16:51 22:30 05:30 WBC 5.5 Hgb 11.7 Plt Count 336 Sodium Potassium BUN Creatinine Troponin I 0.07 H 0.06 H 03/27/19 05:30 WBC Hgb Plt Count Sodium 136 Potassium 4.4 BUN 25 H Creatinine 1.8 H Troponin I - ....Imaging X-ray: Image Reviewed EKG: Image Reviewed Problem List - Problems (1) CAD (coronary artery disease) Code(s): I25.10 - ATHSCL HEART DISEASE OF [place] CORONARY ARTERY W/O ANG PCTRS Qualifiers: Coronary Disease-Associated Artery/Lesion type: bypass graft [place] vs. transplanted heart: [place] heart Associated angina: with unspecified angina Qualified Code(s): I25.709 - Atherosclerosis of coronary artery bypass graft(s) , unspecified, with unspecified angina pectoris (2) Hx of CABG Code(s): Z95.1 - PRESENCE OF AORTOCORONARY BYPASS GRAFT (3) Chest pain Code(s): R07.9 - CHEST PAIN, UNSPECIFIED Qualifiers: Chest pain type: unspecified Qualified Code(s): R07.9 - Chest pain, unspecified (4) SOB (shortness of breath) Code(s): R06.02 - SHORTNESS OF BREATH (5) Troponin I above reference range Code(s): R74.8 - ABNORMAL LEVELS OF OTHER SERUM ENZYMES (6) Diabetes Code(s): E11.9 - TYPE 2 DIABETES MELLITUS WITHOUT COMPLICATIONS Qualifiers: Diabetes mellitus type: type 2 Diabetes mellitus complication status: with circulatory complication (7) Sarcoidosis Code(s): D86.9 - SARCOIDOSIS, UNSPECIFIED Assessment/Plan IMP: 1. CAD s/p prior PCI and recent 4vCABG at [facility] 2. DM 3. Sarcoid 4. History of TTP reaction to Clopidogrel 5. CKD Now presenting with exertional dyspnea and atypical CP. --If vein graft closure, would have expected higher TnI elevation. --Low suspicion for pulmonary embolism. --Doubt pericardial disease as recent office echo without effusion. REC: 1. Resume Brilinta 2. Echo for EF, wall motion 3. Lexiscan MPI today Further reccs pending above. Thank you.
[2018-12-13] MEDS ORDERED: REGADENOSON 0.4 MG/5 ML PRE-FILLED SYRINGE IVPUSH ONE ×2 (09:45→09:49)
[2018-12-13] MEDS: METOPROLOL TARTRATE 25 MG TABLET (FP) PO SCH ×2 (10:00→22:16)
[2018-12-13] MEDS ORDERED: PATIENT'S OWN MEDICATION (NON-FORMULARY) (Losartan/Hydrochlorothiazide [Losartan-Hctz 100- PO SCH (10:00)
[2018-12-13] MEDS ORDERED: LOSARTAN POTASSIUM 50 MG TABLET (FP) PO SCH (10:00)
[2018-12-13] MEDS ORDERED: HYDROCHLOROTHIAZIDE 25 MG TABLET (FP) PO SCH (10:00)
[2018-12-13] MEDS ORDERED: ASPIRIN 81 MG CHEWABLE TABLETS PO SCH (10:00)
[2018-12-13] MEDS ORDERED: amLODIPine BESYLATE 5 MG TABLET (FP) PO SCH (10:00)
--- NOTE | 2018-12-13 11:40 | ECHO ---
Name: CHRISTINE DEL RIO Exam:Adult Echocardiogram Study Date: 12/13/2018 07:38 AM Age: 68 yrs Reason For Study: Chest pain Height: 70 in Weight: 190 lb BSA: 2.0 m2 MMode/2D Measurements & Calculations IVSd: 0.94 cm Ao root diam: 3.6 cm LVIDd: 4.6 cm LA dimension: 2.5 cm LVIDs: 3.7 cm LVPWd: 0.98 cm EDV(Teich): 96.4 ml LVOT diam: 2.0 cm ESV(Teich): 56.5 ml LAV (MOD-bp): 36.7 ml Doppler Measurements & Calculations MV E max moose: 74.7 cm/sec Ao V2 max: 97.7 cm/sec MV A max moose: 95.6 cm/sec Ao max P.8 mmHg MV E/A: 0.78 MV dec time: 0.15 sec SHYANN(V,D): 2.0 cm2 LV V1 max P.5 mmHg PA V2 max: 103.2 cm/sec LV V1 max: 61.6 cm/sec PA max P.3 mmHg Med Peak E' Moose: 6.5 cm/sec PI Vmax: 205.0 cm/sec Med E/e': 11.4 Lat Peak E' Moose: 11.5 cm/sec Lat E/e': 6.5 Procedure The study was technically difficult with many images being suboptimal in quality. Left Ventricle The left ventricle is grossly normal size. Left ventricular systolic function is moderately reduced. E/A reversal consistent with but not diagnostic of poor LV compliance. There is moderate global hypokines is of the left ventricle. There is mild posterior wall hypokinesis. Regional wall motion abnormalities cannot b e excluded due to limited visualization. Right Ventricle The right ventricle is not well visualized. Atria Normal left and right atrial size and function. Mitral Valve The mitral valve is not well visualized. Tricuspid Valve The tricuspid valve is not well visualized. Aortic Valve The aortic valve is not well visualized. There is moderate aortic valve thickening. There is moderate aortic sclerosis.;. No hemodynamically significant valvular aortic stenosis. No aortic regurgitation is pres ent. Pulmonic Valve The pulmonic valve is not well visualized. There is no pulmonic valvular stenosis. Trace to mild pulm onic valvular regurgitation. Great Vessels The aortic root is normal size. Pericardium/Pleura Trivial pericardial effusion. Interpretation Summary The left ventricle is grossly normal size. Left ventricular systolic function is moderately reduced. The aortic valve is not well visualized. There is moderate aortic valve thickening. There is moderate aortic sclerosis.; There is moderate global hypokinesis of the left ventricle. There is mild posterior wall hypokinesis. Regional wall motion abnormalities cannot be excluded due to limited visualization. E/A reversal consistent with but not diagnostic of poor LV compliance The mitral valve is not well visualized. The tricuspid valve is not well visualized. MD Blaze Cohen 12/13/2018 11:40 AM
[2018-12-13] MEDS: TICAGRELOR 90 MG TABLET PO SCH ×2 (13:15→22:16)
[2018-12-13] MEDS ORDERED: PT OWN MED DRAWER 7, Y5N ONE ×2 (13:19→21:13)
--- NOTE | 2018-12-13 18:08 | PN ---
Physical Exam: SUBJECTIVE: Patient seen and examined at bedside. no more cp. no complaints. denies fever, cp, sob, n/v/d. s/p echo/stress test today OBJECTIVE: Vital Signs Period Temp Pulse Resp BP Sys/Cisneros Pulse Ox Last 24 Hr 97.8 F-98.6 F 79-98 18-20 110-141/62-71 94-100 GENERAL: Awake, alert, and fully oriented, in no acute distress. HEAD: Normal with no signs of trauma. NECK: Normal range of motion, supple without lymphadenopathy, JVD, or masses. LUNGS: Breath sounds equal, clear to auscultation bilaterally. No wheezes, and no crackles. No accessory muscle use. HEART: Regular rate and rhythm, normal S1 and S2 without murmur, rub or gallop. no tenderness to palpation over the chest. ABDOMEN: Soft, nontender, not distended, normoactive bowel sounds, no guarding, no rebound, no masses. No hepatomegaly or splenomegaly. LOWER EXTREMITIES: 2+ pulses, warm, well-perfused. No calf tenderness. No peripheral edema. NEUROLOGICAL: Cranial nerves II-X intact. Normal speech. SKIN: Warm, dry, normal turgor, no rashes or lesions noted, normal capillary refill. Laboratory Results - last 24 hr 12/12/18 12/12/18 12/13/18 22:30 22:38 05:30 WBC 5.5 RBC 3.87 L Hgb 11.7 Hct 34.5 L MCV 89.2 MCH 30.2 MCHC 33.9 RDW 14.8 Plt Count 336 MPV 8.3 PT with INR INR PTT (Actin FS) Sodium Potassium Chloride Carbon Dioxide Anion Gap BUN Creatinine Creat Clearance w eGFR POC Glucometer 164 Random Glucose Calcium Phosphorus Magnesium Total Bilirubin AST ALT Alkaline Phosphatase Troponin I 0.06 H Total Protein Albumin 12/13/18 12/13/18 12/13/18 05:30 05:30 06:31 WBC RBC Hgb Hct MCV MCH MCHC RDW Plt Count MPV PT with INR 12.20 INR 1.03 PTT (Actin FS) 37.8 H Sodium 136 Potassium 4.4 Chloride 100 Carbon Dioxide 32 Anion Gap 4 L BUN 25 H Creatinine 1.8 H Creat Clearance w eGFR 37.71 POC Glucometer 133 Random Glucose 134 H Calcium 9.2 Phosphorus 4.4 Magnesium 1.7 L Total Bilirubin 0.3 AST 13 L ALT 15 Alkaline Phosphatase 51 Troponin I Total Protein 7.2 Albumin 3.1 L 12/13/18 12/13/18 12/13/18 13:13 15:45 16:38 WBC RBC Hgb Hct MCV MCH MCHC RDW Plt Count MPV PT with INR INR PTT (Actin FS) Sodium Potassium Chloride Carbon Dioxide Anion Gap BUN Creatinine Creat Clearance w eGFR POC Glucometer 196 279 Random Glucose Calcium Phosphorus Magnesium Total Bilirubin AST ALT Alkaline Phosphatase Troponin I 0.03 Total Protein Albumin Active Medications Generic Name Dose Route Start Last Admin Trade Name Freq PRN Reason Stop Dose Admin Amlodipine Besylate 5 mg 12/13/18 10:00 12/13/18 09:10 Norvasc - PO 5 mg DAILY [facility] Administration Aspirin 81 mg 12/13/18 10:00 12/13/18 09:10 Asa - PO 81 mg DAILY [facility] Administration Heparin Sodium (Porcine) 5,000 unit 12/12/18 18:00 12/13/18 17:46 Heparin - SQ 5,000 unit Q8H-IV [facility] Administration Hydrochlorothiazide 25 mg 12/13/18 10:00 12/13/18 09:10 Hctz - PO 25 mg DAILY [facility] Administration Insulin Aspart 0 vial 12/12/18 16:30 12/13/18 17:12 Novolog Vial Sliding Scale - SQ 6 units ACHS [facility] Administration Protocol Losartan Potassium 100 mg 12/13/18 10:00 12/13/18 09:10 Cozaar - PO 100 mg DAILY [facility] Administration Metoprolol Tartrate 25 mg 12/13/18 10:00 12/13/18 10:00 Lopressor - PO Not Given BID [facility] Tamsulosin HCl 0.4 mg 12/13/18 08:30 12/13/18 08:36 Flomax - PO 0.4 mg DAILY@0830 [facility] Administration Ticagrelor 90 mg 12/13/18 10:00 12/13/18 13:15 Brilinta - PO 90 mg BID [facility] Administration VINSON to LAD, and 3 vein grafts ECG shows same diffuse ST changes inferiorly and laterally seen on his first post op ECG in office ECHO 12/13/18 Interpretation Summary The left ventricle is grossly normal size. Left ventricular systolic function is moderately reduced. The aortic valve is not well visualized. There is moderate aortic valve thickening. There is moderate aortic sclerosis.; There is moderate global hypokinesis of the left ventricle. There is mild posterior wall hypokinesis. Regional wall motion abnormalities cannot be excluded due to limited visualization. E/A reversal consistent with but not diagnostic of poor LV compliance The mitral valve is not well visualized. The tricuspid valve is not well visualized. [id number] NM/G RACHEL JJ 1 DAY* REASON FOR EXAM: Risk stratification MEDICATIONS: As per chart GATED STRESS PHARMACOLOGICAL MYOVIEW PERFUSION SCAN-1DAY PROTOCOL. DESCRIPTION OF TEST: Pharmacological stress testing was performed utilizing Lexiscan (Regadenoson) which was infused at a dose of .4mg/5ml; rapidly infused in 10 seconds via an intravenous line followed by 5 ml normal saline injection. Blood pressure was recorded at frequent intervals from an arm cuff. Patient was injected with 12.6 mCi TC-99m MYOVIEW at rest and 30.9 mCi TC- 99m MYOVIEW was injected 10-20 seconds post infusion of Lexiscan (Regadenoson). Rest and stress images were obtained utilizing a [email or web address] SPECT Camera in the tomographic technique. Images were reconstructed in the horizontal long, vertical long and short axis views. Left ventricular gated analysis was also performed. EXERCISE HEMODYNAMICS: Resting heart rate was 83 BPM, peak Lexiscan infusion heart rate was 121 BPM representing of the maximum predicted heart rate. Resting blood pressure was 143 /82 mg/Hg, peak Lexiscan infusion blood pressure was 143/82 mm/Hg. ELECTROCARDIOGRAPHIC FINDINGS: Baseline EKG showed normal sinus rhythm of focal voltage criteria for LVH inferior lateral ST depressions. At peak stress no diagnostic STT wave changes no ischemic symptoms no arrhythmias. GATED PERFUSION SCAN AND SPECT IMAGES: Large sized moderate intensity apical and lateral reversible perfusion defect consistent with ischemia. Normal wall motion ejection fraction 53%. FINAL CONCLUSION: EXERCISE RESULTS: Baseline EKG showed normal sinus rhythm of focal voltage criteria for LVH inferior lateral ST depressions. At peak stress no diagnostic ST-T wave changes no ischemic symptoms no arrhythmias. NUCLEAR RESULTS: Large sized moderate intensity apical and lateral reversible perfusion defect consistent with ischemia. Normal wall motion ejection fraction 53%. ASSESSMENT/PLAN: 68 yo m w/ PMH CAD s/p PCI, DM, CKD, HTN, Sarcoid, recent 4 V CABG at [facility] who comes into the ED c/o a 1 week history of chest discomfort and SOB. #CP, SOB, troponemia concerning for ACS -no active CP at this time -consult cardiology: Dr. Carroll -ECG shows same diffuse ST changes inferiorly and laterally seen on his first post op ECG in office, per cardio -trop downtrended 0.09....0.03 -echo and stress noted above -cont asa/brilinta/metoprolol -per cardio, recommend transfer to [facility] for cath. #CKD- at baseline HTN home meds #DM -holding oral hypoglycemics -BGM ACHS -ISS ACHS #FEN -no fluids indicated -lytes WNL, monitor -diabetic diet; will make NPO past midnight for transfer to [facility] for cath #Prophy -Heparin SQ 5k units q8h, hold AM dose #dispo -observe on tele -NPO past midnight for transfer to [facility] for cath -per cardio, recommend transfer to [facility] for cath. Visit type - Emergency Visit Emergency Visit: Yes ED Registration Date: 12/12/18 Care time: The patient presented to the Emergency Department on the above date and was hospitalized for further evaluation of their emergent condition. - New Patient This patient is new to me today: Yes Date on this admission: 12/13/18 - Critical Care Critical Care patient: No
[2018-12-13] MEDS ORDERED: ACETAMINOPHEN 325 MG TABLET (FP) PO ONE ×2 (18:16→19:19)
--- NOTE | 2018-12-13 21:05 | PN ---
Teaching Attending Note Name of Resident: Adonis Rodriguez ATTENDING PHYSICIAN STATEMENT I saw and evaluated the patient. I reviewed the resident's note and discussed the case with the resident. I agree with the resident's findings and plan as documented. SUBJECTIVE: No further chest pain. No dyspnea/cough/sputum/hemoptysis. No fever/ chills. OBJECTIVE: Afebrile, Hemodynamically Stable. Last Vital Signs Temp Pulse Resp BP Pulse Ox 98.2 F 98 H 20 110/67 96 12/13/18 17:54 12/13/18 17:54 12/13/18 17:54 12/13/18 17:54 12/13/18 13:00 HEENT - Atraumatic, Normocephalic Heart -S1, S2, RRR Lungs - clear to auscultation, no crackles/wheeze Abdomen - Doft, non-tender. Bowel Sounds normal. Extremities - no edema. No calf tenderness. Laboratory Results - last 24 hr 12/12/18 12/12/18 12/13/18 22:30 22:38 05:30 WBC 5.5 RBC 3.87 L Hgb 11.7 Hct 34.5 L MCV 89.2 MCH 30.2 MCHC 33.9 RDW 14.8 Plt Count 336 MPV 8.3 PT with INR INR PTT (Actin FS) Sodium Potassium Chloride Carbon Dioxide Anion Gap BUN Creatinine Creat Clearance w eGFR POC Glucometer 164 Random Glucose Calcium Phosphorus Magnesium Total Bilirubin AST ALT Alkaline Phosphatase Troponin I 0.06 H Total Protein Albumin 12/13/18 12/13/18 12/13/18 05:30 05:30 06:31 WBC RBC Hgb Hct MCV MCH MCHC RDW Plt Count MPV PT with INR 12.20 INR 1.03 PTT (Actin FS) 37.8 H Sodium 136 Potassium 4.4 Chloride 100 Carbon Dioxide 32 Anion Gap 4 L BUN 25 H Creatinine 1.8 H Creat Clearance w eGFR 37.71 POC Glucometer 133 Random Glucose 134 H Calcium 9.2 Phosphorus 4.4 Magnesium 1.7 L Total Bilirubin 0.3 AST 13 L ALT 15 Alkaline Phosphatase 51 Troponin I Total Protein 7.2 Albumin 3.1 L 12/13/18 12/13/18 12/13/18 13:13 15:45 16:38 WBC RBC Hgb Hct MCV MCH MCHC RDW Plt Count MPV PT with INR INR PTT (Actin FS) Sodium Potassium Chloride Carbon Dioxide Anion Gap BUN Creatinine Creat Clearance w eGFR POC Glucometer 196 279 Random Glucose Calcium Phosphorus Magnesium Total Bilirubin AST ALT Alkaline Phosphatase Troponin I 0.03 Total Protein Albumin Current Medications Generic Name Dose Route Start Last Admin Trade Name Junie PRN Reason Stop Dose Admin Amlodipine Besylate 5 mg 12/13/18 10:00 12/13/18 09:10 Norvasc - PO 5 mg DAILY [facility] Administration Aspirin 81 mg 12/13/18 10:00 12/13/18 09:10 Asa - PO 81 mg DAILY [facility] Administration Heparin Sodium (Porcine) 5,000 unit 12/12/18 18:00 12/13/18 17:46 Heparin - SQ 5,000 unit Q8H-IV [facility] Administration Hydrochlorothiazide 25 mg 12/13/18 10:00 12/13/18 09:10 Hctz - PO 25 mg DAILY [facility] Administration Insulin Aspart 0 vial 12/12/18 16:30 12/13/18 17:12 Novolog Vial Sliding Scale - SQ 6 units ACHS [facility] Administration Protocol Losartan Potassium 100 mg 12/13/18 10:00 12/13/18 09:10 Cozaar - PO 100 mg DAILY [facility] Administration Metoprolol Tartrate 25 mg 12/13/18 10:00 12/13/18 10:00 Lopressor - PO Not Given BID [facility] Tamsulosin HCl 0.4 mg 12/13/18 08:30 12/13/18 08:36 Flomax - PO 0.4 mg DAILY@0830 [facility] Administration Ticagrelor 90 mg 12/13/18 10:00 12/13/18 13:15 Brilinta - PO 90 mg BID [facility] Administration Home Medications Medication Instructions Recorded Glipizide [Glipizide ER] 5 mg PO BID 06/16/16 Losartan/Hydrochlorothiazide 1 each PO DAILY 06/16/16 [Losartan-Hctz 100-25 mg Tab] Metoprolol Tartrate 25 mg PO BID 05/25/17 Insulin Aspart [Novolog] 15 unit SQ TID 10/20/18 Amlodipine Besylate 5 mg PO DAILY 12/12/18 Aspirin 81 mg PO DAILY 12/12/18 Insulin Detemir [Levemir Flextouch] 20 unit SQ BID 12/12/18 Sitagliptin Phos/Metformin HCl 1 tab PO DAILY 12/12/18 [Janumet 50-1,000 mg Tablet] Tamsulosin HCl 0.4 mg PO DAILY 12/12/18 ASSESSMENT/PLAN: 68 year old Male with DM 2, CAD s/p AL s/p CABG 10/23/18, CKD 3, presented with 1 week history of intermittent chest discomfort, radiates to L shoulder and associated dyspnea, palpitations. 1. Chrst Pain in setting of CAD s/p recent CABG 11/07 ECG - T wave inversions inferolateral leads. TropI 0.09 --- > 0.06 Chest pain free currently Echo - global hypokinesis Stress Test - positive for large reversible defect Cardiology recommends adding Brilinta to Aspirin and transfer for Cardiac Cath. 2. SM 2 - Hold oral anti-hyperglycemic agents and maintain on sliding scale. 3. CKD 3 - Stable. 4. BPH - Continue Tamsulosin 5, HTN - Continued on HCTZ, Norvasc, Metoprolol, Losartan 6. Hypomagnesemia - repleted. DVT Px - Heparin SQ
[2018-12-14 02:00] VITALS: BP 146/85; PULSE 83; TEMP 98.5
--- NOTE | 2018-12-14 07:01 | DS ---
Physical Exam: SUBJECTIVE: Patient transferred to [facility] overnight. yesterday had no more cp. no complaints. denied fever, cp, sob, n/v/d. OBJECTIVE: Vital Signs Period Temp Pulse Resp BP Sys/Cisneros Pulse Ox Last 24 Hr 98 F-98.7 F 83-101 18-20 110-146/66-85 94-97 PHYSICAL EXAM pt ws tranfered overnight. yesterday exam: GENERAL: Awake, alert, and fully oriented, in no acute distress. HEAD: Normal with no signs of trauma. NECK: Normal range of motion, supple without lymphadenopathy, JVD, or masses. LUNGS: Breath sounds equal, clear to auscultation bilaterally. No wheezes, and no crackles. No accessory muscle use. HEART: Regular rate and rhythm, normal S1 and S2 without murmur, rub or gallop. no tenderness to palpation over the chest. ABDOMEN: Soft, nontender, not distended, normoactive bowel sounds, no guarding, no rebound, no masses. No hepatomegaly or splenomegaly. LOWER EXTREMITIES: 2+ pulses, warm, well-perfused. No calf tenderness. No peripheral edema. NEUROLOGICAL: Cranial nerves II-X intact. Normal speech. SKIN: Warm, dry, normal turgor, no rashes or lesions noted, normal capillary refill. LABS Laboratory Results - last 24 hr 12/13/18 12/13/18 12/13/18 05:30 05:30 05:30 WBC 5.5 RBC 3.87 L Hgb 11.7 Hct 34.5 L MCV 89.2 MCH 30.2 MCHC 33.9 RDW 14.8 Plt Count 336 MPV 8.3 PT with INR 12.20 INR 1.03 PTT (Actin FS) 37.8 H Sodium 136 Potassium 4.4 Chloride 100 Carbon Dioxide 32 Anion Gap 4 L BUN 25 H Creatinine 1.8 H Creat Clearance w eGFR 37.71 POC Glucometer Random Glucose 134 H Calcium 9.2 Phosphorus 4.4 Magnesium 1.7 L Total Bilirubin 0.3 AST 13 L ALT 15 Alkaline Phosphatase 51 Troponin I Total Protein 7.2 Albumin 3.1 L 12/13/18 12/13/18 12/13/18 13:13 15:45 16:38 WBC RBC Hgb Hct MCV MCH MCHC RDW Plt Count MPV PT with INR INR PTT (Actin FS) Sodium Potassium Chloride Carbon Dioxide Anion Gap BUN Creatinine Creat Clearance w eGFR POC Glucometer 196 279 Random Glucose Calcium Phosphorus Magnesium Total Bilirubin AST ALT Alkaline Phosphatase Troponin I 0.03 Total Protein Albumin 12/13/18 22:15 WBC RBC Hgb Hct MCV MCH MCHC RDW Plt Count MPV PT with INR INR PTT (Actin FS) Sodium Potassium Chloride Carbon Dioxide Anion Gap BUN Creatinine Creat Clearance w eGFR POC Glucometer 180 Random Glucose Calcium Phosphorus Magnesium Total Bilirubin AST ALT Alkaline Phosphatase Troponin I Total Protein Albumin VINSON to LAD, and 3 vein grafts ECG shows same diffuse ST changes inferiorly and laterally seen on his first post op ECG in office ECHO 12/13/18 Interpretation Summary The left ventricle is grossly normal size. Left ventricular systolic function is moderately reduced. The aortic valve is not well visualized. There is moderate aortic valve thickening. There is moderate aortic sclerosis.; There is moderate global hypokinesis of the left ventricle. There is mild posterior wall hypokinesis. Regional wall motion abnormalities cannot be excluded due to limited visualization. E/A reversal consistent with but not diagnostic of poor LV compliance The mitral valve is not well visualized. The tricuspid valve is not well visualized. [id number] NM/G RACHEL JJ 1 DAY* REASON FOR EXAM: Risk stratification MEDICATIONS: As per chart GATED STRESS PHARMACOLOGICAL MYOVIEW PERFUSION SCAN-1DAY PROTOCOL. DESCRIPTION OF TEST: Pharmacological stress testing was performed utilizing Lexiscan (Regadenoson) which was infused at a dose of .4mg/5ml; rapidly infused in 10 seconds via an intravenous line followed by 5 ml normal saline injection. Blood pressure was recorded at frequent intervals from an arm cuff. Patient was injected with 12.6 mCi TC-99m MYOVIEW at rest and 30.9 mCi TC- 99m MYOVIEW was injected 10-20 seconds post infusion of Lexiscan (Regadenoson). Rest and stress images were obtained utilizing a [employer]. SPECT Camera in the tomographic technique. Images were reconstructed in the horizontal long, vertical long and short axis views. Left ventricular gated analysis was also performed. EXERCISE HEMODYNAMICS: Resting heart rate was 83 BPM, peak Lexiscan infusion heart rate was 121 BPM representing of the maximum predicted heart rate. Resting blood pressure was 143 /82 mg/Hg, peak Lexiscan infusion blood pressure was 143/82 mm/Hg. ELECTROCARDIOGRAPHIC FINDINGS: Baseline EKG showed normal sinus rhythm of focal voltage criteria for LVH inferior lateral ST depressions. At peak stress no diagnostic STT wave changes no ischemic symptoms no arrhythmias. GATED PERFUSION SCAN AND SPECT IMAGES: Large sized moderate intensity apical and lateral reversible perfusion defect consistent with ischemia. Normal wall motion ejection fraction 53%. FINAL CONCLUSION: EXERCISE RESULTS: Baseline EKG showed normal sinus rhythm of focal voltage criteria for LVH inferior lateral ST depressions. At peak stress no diagnostic ST-T wave changes no ischemic symptoms no arrhythmias. NUCLEAR RESULTS: Large sized moderate intensity apical and lateral reversible perfusion defect consistent with ischemia. Normal wall motion ejection fraction 53%. HOSPITAL COURSE: Date of Admission:12/12/18 Date of Discharge: 12/14/18 68 yo m w/ PMH CAD s/p PCI, DM, CKD 3, HTN, Sarcoid, BPH, recent 4 V CABG at [facility] 10/23/18 who comes into the ED c/o a 1 week history of chest discomfort and SOB. Admitted for CP, SOB, troponemia concerning for ACS. consult cardiology: Dr. Carroll. ECG shows same diffuse ST changes inferiorly and laterally seen on his prior ECG in office, per cardio. trop downtrended 0.09....0.03. Chest pain free currently. Echo - global hypokinesis as noted above. Stress Test - positive for large reversible defect, EF 53%, as noted above. Cardiology recommends adding Brilinta to Aspirin and transfer to [facility] for Cardiac Cath. pt is stable and ready for transfer to [facility] w/ appropriate f/u Minutes to complete discharge: 39 Discharge Summary Reason For Visit: ELEVETED TROPONIN LEVEL,SOB,HYPERGLYCEMIA,CHEST PA Condition: Guarded - Instructions Diet, Activity, Other Instructions: you came in with chest pain. your stress test and echo showed decreased pumping of your heart and some areas of your heart that have decreased blood supply. we will be transferring you to [facility] for a heart catheterization to look for any blockages in the vessels of the heart. Please resume your home meds We started you on a new med called brilinta. please continue to take brilinta Please follow up with your primary care physician within 1 week Please follow up with your tube buffer or tube buffer Dr. Carroll within 1 week Referrals: Galdino Carroll MD [Staff Physician] - 1 Week Disposition: TRANSFER ACUTE CARE/OTHER HOSP - Home Medications Comprehensive Discharge Medication List: Ambulatory Orders Glipizide [Glipizide ER] 5 mg PO BID 06/16/16 Losartan/Hydrochlorothiazide [Losartan-Hctz 100-25 mg Tab] 1 each PO DAILY 06/16 Metoprolol Tartrate 25 mg PO BID 05/25/17 Insulin Aspart [Novolog] 15 unit SQ TID 10/20/18 Amlodipine Besylate 5 mg PO DAILY 12/12/18 Aspirin 81 mg PO DAILY 12/12/18 Insulin Detemir [Levemir Flextouch] 20 unit SQ BID 12/12/18 Sitagliptin Phos/Metformin HCl [Janumet 50-1,000 mg Tablet] 1 tab PO DAILY 12/12 Tamsulosin HCl 0.4 mg PO DAILY 12/12/18 Ticagrelor [Brilinta -] 90 mg PO BID tablet 12/14/18 This patient is new to me today: Yes Date on this admission: 12/14/18 Emergency Visit: Yes ED Registration Date: 12/12/18 Care time: The patient presented to the Emergency Department on the above date and was hospitalized for further evaluation of their emergent condition. Critical Care patient: No - Discharge Referral Referred to [facility] Med P.C.: No
== END 2018-12-14 03:00 | disposition short-term general hospital (02) ==
LOC: JER 09:49 → UNDOADMOB 11:57 → JERBED 11:57 → INTOOBSV 11:57 → JERBED 13:02 → J4W 18:53
PROVIDERS: ADMIT Internal Medicine
PROC: 3E033GC Introduction of Other Therapeutic Substance into Peripheral Vein, Percutaneous Approach (ICD-10-PCS; principal; 2018-12-12)
PROC: 3E013GC Introduction of Other Therapeutic Substance into Subcutaneous Tissue, Percutaneous Approach (ICD-10-PCS; 2018-12-12)
DX: R77.8 Other specified abnormalities of plasma proteins (principal); R07.9 Chest pain, unspecified; R06.02 Shortness of breath; E11.65 Type 2 diabetes mellitus with hyperglycemia; E11.22 Type 2 diabetes mellitus with diabetic chronic kidney disease; I12.9 Hypertensive chronic kidney disease with stage 1 through stage 4 chronic kidney disease, or unspecified chronic kidney disease; N18.3 Chronic kidney disease, stage 3 (moderate); Z79.4 Long term (current) use of insulin; E87.1 Hypo-osmolality and hyponatremia; I25.709 Atherosclerosis of coronary artery bypass graft(s), unspecified, with unspecified angina pectoris; D86.9 Sarcoidosis, unspecified; E78.5 Hyperlipidemia, unspecified; I25.2 Old myocardial infarction; E83.42 Hypomagnesemia; J45.909 Unspecified asthma, uncomplicated; D64.9 Anemia, unspecified; N40.0 Benign prostatic hyperplasia without lower urinary tract symptoms; K21.9 Gastro-esophageal reflux disease without esophagitis; Z95.1 Presence of aortocoronary bypass graft; Z95.5 Presence of coronary angioplasty implant and graft; Z79.82 Long term (current) use of aspirin; Z88.2 Allergy status to sulfonamides
CPT/HCPCS: 36415; 71046-TC-FY; 78452-TC; 80053; 82550; 82962; 83735; 83880; 84100; 84484; 85025; 85027; 85610; 85730; 93005; 93010; 93017; 93306-TC; 96372; 96374; 96375; 99282-25; A9502; G0378; J1644; J2785

== ENCOUNTER 2019-10-15 19:22 | Emergency (ER) | payer MEDICARE, OTHER ==
--- NOTE | 2019-10-15 19:49 | PDOC ---
History of Present Illness - General Stated Complaint: DIZZINESS & NAUSEA Time Seen by Provider: 10/15/19 19:48 - History of Present Illness Initial Comments: 10/15/19 19:48 HPI: 69 y/o M with hx of CAD s/p PCI and CABG, IDDM, CKD 3, HTN, Sarcoid, BPH presenting with nausea, vomiting, abd pain that started earlier this afternoon. Patient ate a meal of mixed vegetable and soon after felt nauseous with generalized abd pain. He had 4-5 episodes of emesis; was able to tolerate PO liquids. Also reports loos stools but no watery diarrhea. Most concerning for him is the LH. Denies MENCHACA, fever, chills, chills, chest pain, dysuria. Reports SOB at baseline that improves with symbicort and unchanged from previous visit with Dr Carroll. PMHx: as noted above ROS: as noted SHx: Denies tobacco use; no alcohol use; no rec drugs Allergies: NKDA ROS: GENERAL/CONSTITUTIONAL: No fever or chills. No weakness. HEAD, EYES, EARS, NOSE AND THROAT: No change in vision. No ear pain or discharge. No sore throat. CARDIOVASCULAR: No chest pain; + shortness of breath RESPIRATORY: No cough, wheezing, or hemoptysis. GASTROINTESTINAL: + nausea, vomiting; no diarrhea or constipation. GENITOURINARY: No dysuria, frequency, or change in urination. MUSCULOSKELETAL: No joint or muscle swelling or pain. No neck or back pain. SKIN: No rash NEUROLOGIC: No headache, loss of consciousness, or change in strength/sensation. ENDOCRINE: No increased thirst. No abnormal weight change HEMATOLOGIC/LYMPHATIC: No anemia, easy bleeding, or history of blood clots. ALLERGIC/IMMUNOLOGIC: No hives or skin allergy. PE: GENERAL: Awake, alert, and fully oriented, no acute distress HEAD: No signs of trauma, normocephalic, atraumatic EYES: EOMI, sclera anicteric, conjunctiva clear ENT: Auricles normal inspection, hearing grossly normal, nares patent, oropharynx clear without exudates. Moist mucosa NECK: Normal ROM, no lymphadenopathy LUNGS: No increased work of breathing, symmetrical chest rise, clear to auscultation bilaterally, no wheezes, crackles or rhonchi HEART: Regular rate, regular rhythm, normal S1 and S2, no murmur, peripheral pulses 2+ and equal bilaterally. ABDOMEN: Soft, nondistended, nontender, normoactive bowel sounds. No guarding, no rebound. No masses. No CVAT MUSCULOSKELETAL: FROM NEUROLOGICAL: Cranial nerves II through XII grossly intact. Normal speech, normal gait, no focal sensorimotor deficits, negative DixHallpike SKIN: Warm, Dry, normal turgor, no rashes or lesions noted Past History - Past Medical History Allergies/Adverse Reactions: Allergies Allergy/AdvReac Type Severity Reaction Status Date / Time clopidogrel bisulfate Allergy Severe Difficulty Verified 10/15/19 20:57 [From Plavix] Breathing atorvastatin calcium AdvReac Severe Muscle Verified 10/15/19 20:57 [From Lipitor] Spasms Home Medications: Ambulatory Orders Glipizide [Glipizide ER] 5 mg PO BID 06/16/16 Losartan/Hydrochlorothiazide [Losartan-Hctz 100-25 mg Tab] 1 each PO DAILY 06/16 Metoprolol Tartrate 25 mg PO BID 05/25/17 Insulin Aspart [Novolog] 15 unit SQ TID 10/20/18 Amlodipine Besylate 5 mg PO DAILY 12/12/18 Aspirin 81 mg PO DAILY 12/12/18 Insulin Detemir [Levemir Flextouch] 20 unit SQ BID 12/12/18 Sitagliptin Phos/Metformin HCl [Janumet 50-1,000 mg Tablet] 1 tab PO DAILY 12/12 Tamsulosin HCl 0.4 mg PO DAILY 12/12/18 Ticagrelor [Brilinta -] 90 mg PO BID tablet 12/14/18 Anemia: Yes Asthma: Yes Cancer: No Cardiac Disorders: Yes (AL, stents,CABG) CVA: No COPD: No CHF: No DVT: No Dementia: No Diabetes: Yes GI Disorders: Yes (GERD) Disorders: No HTN: Yes Hypercholesterolemia: Yes Liver Disease: No Seizures: No Thyroid Disease: No - Surgical History Abdominal Surgery: No Appendectomy: No Cardiac Surgery: Yes (2 STENTS,CABG) Cholecystectomy: No Lung Surgery: No Neurologic Surgery: No Orthopedic Surgery: No - Immunization History Td Vaccination: Yes Immunization Up to Date: Yes - Psycho Social/Smoking Cessation Hx Smoking Status: No Smoking History: Never smoked Years of Tobacco Use: 0 Have you smoked in the past 12 months: No Number of Cigarettes Smoked Daily: 0 Cigars Per Day: 0 Hx Alcohol Use: No Drug/Substance Use Hx: No Substance Use Type: None Hx Substance Use Treatment: No ED Treatment Course - LABORATORY CBC & Chemistry Diagram: 10/15/19 20:49 10/15/19 20:49 Medical Decision Making - Medical Decision Making 10/15/19 20:40 69 y/o M with hx of CAD s/p PCI and CABG, IDDM, CKD 3, HTN, Sarcoid, BPH presenting with nausea, vomiting, abd pain that started earlier this afternoon after having mixed veggie meal. Also reporting LH. VSS, AF. PE unremarkable. Likely gastroenteritis -CBC, CMP, trop, ekg, lipase, mg, phos, ua -ivf, zofran, ofirmev 10/15/19 22:48 patient labs wnl symptoms improved tolerating po discussed with patient results and return pcxns; comfortable with plan and will DC home with pcp followup Discharge - Discharge Information Problems reviewed: Yes Clinical Impression/Diagnosis: Nausea & vomiting Qualifiers: Vomiting type: unspecified Vomiting Intractability: non-intractable Qualified Code(s): R11.2 - Nausea with vomiting, unspecified Abdominal pain Qualifiers: Abdominal location: unspecified location Qualified Code(s): R10.9 - Unspecified abdominal pain Condition: Improved Disposition: HOME - Follow up/Referral Referrals: Aleida Soni MD [Primary Care Provider] - - Patient Discharge Instructions Patient Printed Discharge Instructions: Nausea and Vomiting-Adult, DI for Viral Gastroenteritis -- Adult Additional Instructions: Additional Instructions: Please return to the emergency department with any new or worsening symptoms or concerns including worsening pain, persistent vomiting, inability to tolerate food, fainting. Please follow up with your primary care physician within 72 hours. Recommending BRAT diet until no further nausea or abdominal pain with banana, rice, apple sauce, toast - Post Discharge Activity
[2019-10-15] MEDS ORDERED: SODIUM CHLORIDE 1,000 ML IV STA (20:11)
[2019-10-15] MEDS ORDERED: ONDANSETRON 4 MG/2 ML VIAL IVPUSH ONE (20:11)
[2019-10-15] MEDS ORDERED: ACETAMINOPHEN 1000 MG/100 ML VIAL (NON FORMULARY) IVPB ONE (20:11)
[2019-10-15] MEDS ORDERED: ACETAMINOPHEN INJECTION 100 ML IVPB ONE (20:20)
[2019-10-15] MEDS ORDERED: ONDANSETRON 4 MG/2 ML VIAL ONE (20:20)
[2019-10-15 21:11] LABS: BASO % 0.5 % (0-2.0); EOS % 0.3 % (0-4.5); HEMATOCRIT 37.4 % (35.4-49); HEMOGLOBIN 12.3 GM/dL (11.7-16.9); MCH 29.8 pg (25.7-33.7); MCHC 32.8 g/dl (32.0-35.9); MEAN PLT VOLUME 8.8 fl (7.5-11.1); MONO % 6.2 % (3.8-10.2); PLATELET COUNT 269 K/MM3 (134-434); RBC 4.11 M/mm3 (4.00-5.60); RDW 13.8 % (11.9-15.9); WHITE BLOOD COUNT 10.9 K/mm3 (4.0-10.0)
[2019-10-15 22:29] VITALS: BP 141/76; PULSE 71; TEMP 98.5; BMI 30.1
[2019-10-15 23:17] LABS: EPI CELLS 1.8 /HPF (0-5/HPF); HYALINE CASTS 0 /lpf (0-8); PH,URINE 7.5 (5.0-8.0); URINE APPEARANCE CLEAR; URINE BACTERIA 0.7 /hpf (NEGATIVE); URINE BILIRUBIN NEGATIVE (NEGATIVE); URINE COLOR YELLOW; URINE GLUCOSE (UA) NEGATIVE (NEGATIVE); URINE KETONE NEGATIVE (NEGATIVE); URINE LEUK ESTERASE NEGATIVE (NEGATIVE); URINE NITRITE NEGATIVE (NEGATIVE); URINE PROTEIN 3+ (NEGATIVE); URINE RBC 1 /hpf (0-4); URINE UROBILINOGEN 0.2 mg/dL (0.2-1.0); URINE WBC 1 /hpf (0-5)
[2019-10-15 23:50] LABS: ALBUMIN 3.1 g/dl (3.4-5.0); BILIRUBIN,TOTAL 0.2 mg/dL (0.2-1); BLOOD UREA NITROGEN 13.8 mg/dL (7-18); CALCIUM 8.9 mg/dL (8.5-10.1); CREATININE 1.4 mg/dL (0.55-1.3); POTASSIUM 4.4 mmol/L (3.5-5.1); TOT PROT 6.8 g/dl (6.4-8.2)
--- NOTE | 2019-10-16 00:17 | PDOC ---
Documentation entered by David Miller SCRIBE, acting as scribe for Sanaz Chopra MD. Sanaz Chopra MD: This documentation has been prepared by the Angela erickson Xhesika, SCRIBE, under my direction and personally reviewed by me in its entirety. I confirm that the documentation accurately reflects all work, treatment, procedures, and medical decision making performed by me. Attending Attestation - Resident Resident Name: Naren Lacey - ED Attending Attestation I have performed the following: I have examined & evaluated the patient, The case was reviewed & discussed with the resident, I agree w/resident's findings & plan, Exceptions are as noted - HPI HPI: 10/15/19 20:35 The patient is a 69 year old male with no significant PMH of DM, HLD, CAD s/p CABG who presents to the emergency department for 1 day of nausea, vomiting and abdominal pain. The patient states he had a vegetable meal earlier today and 1hr after his meal he endorsed multiple episodes of nbnb emesis and loose stool. Pt reports chronic SOB, took simbacart with improvement of symptoms. 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 Carroll last week. The patient denies chest pain, headache and dizziness. Denies fever, chills, cough, and constipation. Denies dysuria, frequency, urgency and hematuria. Allergies: clopidogrel bisulfate, atorvastatin calcium PCP:Aleida Austin - Physicial Exam PE: 10/15/19 22:58 GENERAL: Awake, alert, and fully oriented, in no acute distress HEAD: No signs of trauma EYES: PERRLA, EOMI, sclera anicteric, conjunctiva clear ENT: Auricles normal inspection, hearing grossly normal, nares patent, oropharynx clear without exudates. Moist mucosa NECK: Normal ROM, supple, no lymphadenopathy, JVD, or masses LUNGS: Breath sounds equal, clear to auscultation bilaterally. No wheezes, and no crackles HEART: Regular rate and rhythm, normal S1 and S2, no murmurs, rubs or gallops ABDOMEN: Soft, nontender, normoactive bowel sounds. No guarding, no rebound. No masses EXTREMITIES: Normal range of motion, no edema. No clubbing or cyanosis. No cords, erythema, or tenderness NEUROLOGICAL: Cranial nerves II through XII grossly intact. Normal speech, normal gait SKIN: Warm, Dry, normal turgor, no rashes or lesions noted. - Medical Decision Making 10/16/19 00:17 Patient received IV fluids and Zofran Symptoms resolved Benign abdominal exam, no chest pain or shortness of breath EKG is normal sinus rhythm at 75 bpm with no acute signs of ischemia, QTC 431 ms Patient discharged home impression gastroenteritis
--- NOTE | 2019-10-16 11:59 | EKG ---
Test Reason : Blood Pressure : / mmHG Vent. Rate : 075 BPM Atrial Rate : 075 BPM P-R Int : 202 ms QRS Dur : 074 ms QT Int : 386 ms P-R-T Axes : 059 067 083 degrees QTc Int : 431 ms POOR DATA QUALITY, INTERPRETATION MAY BE ADVERSELY AFFECTED NORMAL SINUS RHYTHM POSSIBLE LEFT ATRIAL ENLARGEMENT SEPTAL INFARCT (CITED ON OR BEFORE 12-DEC-2018) ABNORMAL ECG Confirmed by MD OZ, JAQUELIN ([id number]) on 10/16/2019 11:59:15 AM Referred By: Confirmed By:JAQUELIN CLINTON MD
== END 2019-10-15 23:40 | disposition home or self-care (01) ==
LOC: JER 19:22
PROC: 3E033GC Introduction of Other Therapeutic Substance into Peripheral Vein, Percutaneous Approach (ICD-10-PCS; principal; 2019-10-15)
PROC: 3E033NZ Introduction of Analgesics, Hypnotics, Sedatives into Peripheral Vein, Percutaneous Approach (ICD-10-PCS; 2019-10-15)
DX: K52.9 Noninfective gastroenteritis and colitis, unspecified (principal); I13.10 Hypertensive heart and chronic kidney disease without heart failure, with stage 1 through stage 4 chronic kidney disease, or unspecified chronic kidney disease; E11.22 Type 2 diabetes mellitus with diabetic chronic kidney disease; N18.3 Chronic kidney disease, stage 3 (moderate); Z79.4 Long term (current) use of insulin; Z95.1 Presence of aortocoronary bypass graft; Z95.5 Presence of coronary angioplasty implant and graft; E78.00 Pure hypercholesterolemia, unspecified; N40.0 Benign prostatic hyperplasia without lower urinary tract symptoms; D86.9 Sarcoidosis, unspecified
CPT/HCPCS: 36415; 80053; 81003; 82550; 83690; 84484; 85025; 85730; 93005; 93010; 96374; 96375; 99283-25; J0131; J7030